=== PATIENT | female | born 1955 | race Hispanic/Latino ===

== ENCOUNTER 2016-07-08 21:23 | Inpatient (IN) | payer OTHER ==
[~2016-07-08] VITALS: Ht 152.4 cm; Wt 86.0 kg
[2016-07-08 22:19] LABS: ABSOLUTE BASOPHIL COUNT 0 /CUMM (0.0-0.2); ABSOLUTE EOSINOPHIL COUNT 0.1 /CUMM (0.0-0.7); ABSOLUTE GRANULOCYTE CT 6.7 /CUMM (1.4-6.5); ABSOLUTE LYMPH COUNT 3.5 /CUMM (1.2-3.4); ABSOLUTE MONOCYTE COUNT 0.9 /CUMM (0.10-0.60); BASOPHIL % 0 % (0.0-2.0); EOSINOPHIL % 1.2 % (0-5); GRANULOCYTE % 59.6 % (42.2-75.2); MEAN CORPUSCULAR HGB 28.2 PG (27.0-31.0); MEAN CORPUSCULAR HGB CONC 33.2 G/DL (33.0-37.0); MEAN PLATELET VOLUME 9.4 FL (7.4-10.4); PLATELET COUNT 244 /CUMM (130-400); RBC DISTRIBUTION WIDTH 14.3 % (11.5-14.5); RED BLOOD CELL CT 4.94 /CUMM (4.20-5.40); WHITE BLOOD CELL COUNT 11.3 /CUMM (4.8-10.8)
[2016-07-08 22:23] LABS: PT 11.6 SEC (9.4-12.5)
--- NOTE | 2016-07-08 23:04 | RADIOLOGY REPORT ---
EXAMINATION: XR PORTABLE CHEST CLINICAL INFORMATION: Cough and shortness of breath COMPARISON: 10/27/2008 TECHNIQUE: Portable AP view of the chest was obtained. FINDINGS: The lungs are well expanded. There is a patchy opacity at the left upper lung. No edema or effusion. No pneumothorax. The cardiomediastinal silhouette is within normal limits. No acute osseous abnormality. IMPRESSION: Patchy left upper lung opacity could represent atelectasis or pneumonia. Follow-up to resolution to exclude underlying process.
--- NOTE | 2016-07-08 23:58 | CT SCAN REPORT ---
EXAMINATION: CTA OF THE HEAD/NECK CLINICAL INFORMATION: Headache and eye redness. Neck pain with right arm pain and weakness. COMPARISON: None. TECHNIQUE: A routine non contrast head CT was performed followed by a 102 mL bolus of Optiray 350. Subsequent multidetector helical imaging was performed of the head and neck. Delayed post contrast imaging was also performed through the head. Multiplanar reformats and MIP were also obtained. Internal carotid artery stenoses are assessed in accordance with NASCET criteria unless otherwise indicated. 3D reformats will be created and reviewed when available. DLP: 2359 mGy-cm. FINDINGS: CT HEAD: No evidence of acute intracranial hemorrhage or territorial infarction. No abnormal mass effect or midline shift. [place] to white matter differentiation is preserved. No extra-axial fluid collections are identified. No hydrocephalus. No suspicious leptomeningeal or parenchymal enhancement on the post-contrast images. The osseous structures and soft tissues are normal. The mastoid air cells and visualized portions of the paranasal sinuses are well aerated. CTA NECK: The aortic arch is of normal caliber and the origins of the great vessels are patent without evidence of significant stenosis. The cervical portion of the vertebral arteries are patent bilaterally. No evidence of dissection. No luminal irregularities in the common carotid arteries and the carotid bifurcations are patent bilaterally. The cervical portion of the internal carotid arteries are of normal caliber. The laryngeal structures and pharyngeal mucosal spaces are unremarkable. The oral cavity appears normal. The parotid and submandibular glands are normal. No pathologically enlarged lymph nodes. The thyroid gland is unremarkable. Patchy consolidation in the left upper lobe suggestive of pneumonia, as seen on the chest radiograph. Spinal alignment is maintained. Mild cervical spondylosis is noted. CTA HEAD: The intradural portion of the vertebral arteries are of normal caliber. The basilar, superior cerebellar, and posterior communicating arteries are patent. The posterior, middle, and anterior cerebral arteries are of normal caliber without evidence of significant luminal irregularity. origin of the right posterior cerebral artery, supplied via the posterior communicating artery. No definite intracranial aneurysms. Of note, the external carotid arteries are also symmetric. The temporal arteries are symmetric. No focal inflammatory changes are seen. IMPRESSION: 1. No acute intracranial findings. 2. Unremarkable CT angiogram of the head and neck. 3. Patchy left upper lobe opacity most suggestive of pneumonia.
--- NOTE | 2016-07-09 01:38 | ED GENERAL ADULT ---
History of Present Illness General Chief Complaint: General Adult Stated Complaint: RIGHT/LEFT HAND NUMBNESS/RED EYE/MCCOY/SOB Source: patient, family, old records Exam Limitations: no limitations Vital Signs & Intake/Output Vital Signs & Intake/Output Vital Signs Date Time Temp Pulse Resp B/P Pulse O2 O2 Flow FiO2 Ox Delivery Rate 07/09 0219 100.6 105 20 122/67 97 Room Air 07/09 0000 100.4 104 22 116/58 97 Room Air 07/08 2130 97.8 111 22 131/91 97 Room Air ED Intake and Output 07/09 0000 07/08 1200 Intake Total Output Total Balance Patient 180 lb Weight Allergies Coded Allergies: aspirin (SENSITIVE 07/08/16) Reconcile Medications No Known Home Medications Triage Note: PER PT SOB SINCE LAST NIGHT THIS AM L SIDE NUMBNESS AND TINGLING THEN THIS AFTERNOON RT ARM STARTED NO CP NO NAUSEA. ALSO RT EYE SCLERA BLOOD SHOT X 3 DAYS STARTED WITH MCCOY Triage Nurses Notes Reviewed? yes Onset: 3 days Duration: day(s):, changing over time, continues in ED, getting worse Timing: recent history Injury Environment: home Severity: severe Modifying Factors: Worsens With: movement. LMP (ages 10-50): post menopausal : No Patient currently breastfeeds: No HPI: 3 days prior to admission patient complains of right eye redness without visual changes. 1 day prior to admission she complains of headache shortness of breath and progressive right arm pain worse at the hand radiating to her neck severe constant associated with difficulty using her hand. She feels that the pain is now radiating to her left arm with similar characteristics. She denies fever chills nausea vomiting diarrhea abdominal pain cough dysuria rash bleeding. Past History Travel History Traveled to [place] past 21 day No Medical History Any Pertinent Medical History? see below for history Neurological: NONE EENT: NONE Cardiovascular: BORDERLINE CHOL Respiratory: NONE Gastrointestinal: NONE Hepatic: NONE Renal: NONE Musculoskeletal: NONE Psychiatric: NONE Endocrine: BORDERLINE DM Surgical History Surgical History: non-contributory Psychosocial History What is your primary language Polish Tobacco Use: Never used Family History Hx Contributory? No Review of Systems Review of Systems Constitutional: Reports: see HPI, malaise, weakness. EENTM: Reports: see HPI. Respiratory: Reports: see HPI, short of breath. Cardiovascular: Reports: no symptoms. GI: Reports: no symptoms. Genitourinary: Reports: no symptoms. Musculoskeletal: Reports: no symptoms. Skin: Reports: no symptoms. Neurological/Psychological: Reports: see HPI, unable to move upper ext, weakness. Hematologic/Endocrine: Reports: no symptoms. Immunologic/Allergic: Reports: no symptoms. All Other Systems: Reviewed and Negative Physical Exam Physical Exam General Appearance: well developed/nourished, alert, awake, anxious, severe distress, obese Head: atraumatic, normal appearance Eyes: Left: normal appearance. Right: other. Ears, Nose, Throat: normal pharynx, normal ENT inspection Neck: normal inspection, supple, full range of motion, no midline tenderness Respiratory: normal breath sounds, chest non-tender, no respiratory distress, quiet respiration, decreased breath sounds Cardiovascular: regular rate/rhythm, normal peripheral pulses, norml femoral pulses equa Peripheral Pulses: 4+ carotid (R), 4+ carotid (L), 2+ radial (R), 2+ radial (L) Gastrointestinal: normal bowel sounds, soft, non-tender, no organomegaly Back: normal inspection, normal range of motion, no vertebral tenderness Extremities: normal capillary refill, limited range of motion, tenderness (soft tissue), no ligament instability, increased vascularity bilateral upper extremities right greater than left Neurologic/Psych: awake, alert, oriented x 3, 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 Skin: intact, normal color, warm/dry Lymphatic: no anterior cervical carmelita Core Measures ACS in differential dx? No CVA/TIA Diagnosis: No Severe Sepsis Present: No Septic Shock Present: No Progress Differential Diagnoses I considered the following diagnoses in my evaluation of the patient: temporal arteritis pneumonia neuropathy vasculitis radiculopathy Plan of Care: Orders Procedure Date/time Status Regular Diet 07/09 B Active TROPONIN LEVEL 07/09 1000 Active LACTIC ACID 07/09 1000 Active EKG 07/09 1000 Active CBC WITHOUT DIFFERENTIAL 07/09 0600 Complete LIPID PANEL 07/09 414 Active GLYCOSYLATED HGB 07/09 414 Active BASIC ELECTROLYTES PLUS BUN&CR 07/09 414 Active Vital Signs 07/09 413 Active Teach/Educate 07/09 413 Active Pain Treatment and Response 07/09 413 Active Nutritional Intake, Monitor 07/09 413 Active Isolation 07/09 413 Active Intake & Output 03/17 0414 Active Patient Care Conference 03/17 0414 Active Activity/Ambulation 07/09 0414 Active TROPONIN LEVEL 07/09 0400 Active EKG 07/09 0400 Active LOWER RESPIRATORY CULTURE 07/09 0322 Active Pathway - chart 07/09 0254 Active Pathway - chart 07/09 0251 Active House Staff 07/09 0251 Active Patient Data 07/09 0251 Active Code Status 07/09 0251 Active Transfer patient to 07/09 0213 Active Patient Data 07/09 0121 Active OXYGEN SETUP (GEN) 07/09 0009 Active Saline Lock 07/09 0009 Active Admit to inpatient 07/09 0009 Active Vital Signs 07/09 0009 Active Activity/Ambulation 07/09 0009 Complete Code Status 07/09 0009 Complete BLOOD CULTURE 07/09 0004 Active XRY-SHOULDER COMPLETE-RIGHT 07/09 UNK Active XRY-SHOULDER COMPLETE-LEFT 07/09 UNK Active Lab Add-on Test 07/09 UNK Active VTE Mechanical Prophylaxis 07/09 UNK Active MRI-CERVICAL SPINE 07/09 UNK Active ECHOCARDIOGRAM 07/09 UNK Active STREP PNEUMO URINARY ANTIGEN 07/08 2354 Complete LEGIONELLA URINARY ANTIGEN 07/08 2354 Complete URINALYSIS 07/08 2351 Complete Intake & Output 07/08 2239 Complete Add-on Test (ER Only) 07/08 2231 Active WESTERGREN SED RATE 07/08 2210 Complete C-REACTIVE PROTEIN 07/08 2210 Complete CREATINE PHOSPHOKINASE 07/08 2210 Complete TROPONIN LEVEL 07/08 2132 Complete PROTHROMBIN TIME 07/08 2132 Complete COMPREHENSIVE METABOLIC PANEL 07/08 2132 Complete CBC WITHOUT DIFFERENTIAL 07/08 213 Complete EKG 07/08 2132 Active Current Medications Sig/Lakhwinder Start time Last Medication Dose Stop Time Status Admin Azithromycin 500 MG DAILY 07/10 1000 AC (Zithromax) Dextrose/Water 250 ML (D5W) Ceftriaxone Sodium 1,000 MG DAILY 07/10 1000 AC (Rocephin) Atorvastatin Calcium 40 MG 1700 07/09 1700 AC (Lipitor) Enoxaparin Sodium 40 MG DAILY 07/09 1000 AC (Lovenox) Aspirin 325 MG ONCE ONE 07/09 0400 UNVr (Aspirin) 07/09 0401 Hydromorphone HCl 0.5 MG Q6PRN PRN 07/09 0330 AC (Dilaudid) Acetaminophen 650 MG Q6P PRN 07/09 0300 AC (Tylenol) Oxycodone/ 1 TAB Q6P PRN 07/09 0300 AC Acetaminophen (Percocet) Laboratory Tests 07/09/16 0415: Anion Gap 11, Estimated GFR > 60, BUN/Creatinine Ratio 17.1, Hemoglobin A1c Pending, Troponin I Pending, Triglycerides 86, Cholesterol 196, LDL Cholesterol, Calc 127, HDL Cholesterol 52, Cholesterol/HDL Ratio 4, CBC w Diff NO MAN DIFF REQ, RBC 4.24, MCV 84.7, MCH 28.4, RDW 14.1, MPV 9.6, Gran % 63.1, Lymphocytes % 29.8, Monocytes % 5.8, Eosinophils % 1.0, Basophils % 0.3, Absolute Granulocytes 7.1 H, Absolute Lymphocytes 3.4, Absolute Monocytes 0.7 H, Absolute Eosinophils 0.1, Absolute Basophils 0, PUBS MCHC 33.5 07/08/16 2354: Urinalysis MOD H, Urine Color YEL, Urine Clarity CLEAR, Urine pH 7.0, Ur Specific Dulzura 1.010, Urine Protein NEG, Urine Ketones NEG, Urine Nitrite NEG, Urine Bilirubin NEG, Urine Urobilinogen 0.2, Ur Leukocyte Esterase NEG, Ur Microscopic SEDIMENT EXAMINED, Urine RBC 1-3, Urine WBC RARE, Ur Epithelial Cells MOD H, Urine Bacteria FEW H, Urine Hemoglobin TRACE-INTACT, Urine Glucose NEG 07/08/16 2210: Anion Gap 16, Estimated GFR > 60, BUN/Creatinine Ratio 17.5, Glucose 102 H, Calcium 10.2, Total Bilirubin 0.5, AST 25, ALT 36, Alkaline Phosphatase 107, Creatine Kinase 122, Troponin I < 0.01, C-Reactive Prot, Quant 2.7 H, Total Protein 8.4 H, Albumin 4.6, Globulin 3.8, Albumin/Globulin Ratio 1.2, PT 11.6, INR 1.11, CBC w Diff NO MAN DIFF REQ, RBC 4.94, MCV 85.0, MCH 28.2, RDW 14.3, MPV 9.4, Gran % 59.6, Lymphocytes % 30.8, Monocytes % 8.4, Eosinophils % 1.2, Basophils % 0 L, Absolute Granulocytes 6.7 H, Absolute Lymphocytes 3.5 H, Absolute Monocytes 0.9 H, Absolute Eosinophils 0.1, Absolute Basophils 0, PUBS MCHC 33.2, ESR Westergren 38 H Microbiology 07/09 0322 LOWER RESP: Respiratory Culture - ORD 07/09 321 LOWER RESP: Gram Stain - ORD 07/09 24 BLOOD: Blood Culture - RECD 07/09 22 BLOOD: Blood Culture - RECD 07/08 2353 URINE ROUT: Legionella Antigen - COMP 07/08 2353 URINE ROUT: Streptococcus pneumoniae Antigen (M - COMP Diagnostic Imaging: Viewed by Me: Radiology Read, CT Scan. Discussed w/RAD: Radiology Read, CT Scan. Radiology Impression: no acute abnormality CXR Impression: AARON infiltrate Initial ED EKG: normal axis, normal intervals, normal p-waves, normal QRS complex, normal sinus rhythm, nonspecific ST T wave chg (flipped t waves V2-5) Rhythm Strip: normal sinus rhythm Departure Departure Disposition: STILL A PATIENT Condition: Stable Clinical Impression Primary Impression: Pneumonia Qualifiers: Pneumonia type: due to unspecified organism Laterality: left Lung location: upper lobe of lung Qualified Code: J18.1 - Lobar pneumonia, unspecified organism Secondary Impressions: Neuropathy, Vasculitis Referrals: CLAUDIA SMITH MD (PCP/Family) Departure Forms: Customer Survey General Discharge Information Prescriptions: Current Visit Scripts No Known Home Medications Admission Note Spoke With: KIM MORGAN MD Documentation of Exam: Documentation of any treatments & extenuating circumstances including Concerns Regarding Discharge (functional status, medication knowledge or non-compliance, living conditions, etc.) that warrant an admission rather than observation: IV antibiotics supplemental oxygen medication adjustment follow cultures IV analgesia neurology and rheumatology evaluation continuing care discharge planning Critical Care Note Critical Care Note Critical Care Time: non-applicable
--- NOTE | 2016-07-09 04:04 | History & Physical ---
REINIER ZAMORANO,[facility] 07/09/16 0403: General Information and HPI Statement: I have seen and personally examined KIMBERLYN RODRIGUEZ and documented this H&P. The patient is a 61 year old F who presented with a patient stated chief complaint of headache and upper extremity pain. History of Present Illness: This is a 61-year-old lady with a past medical history of hyperlipidemia, presents to [facility] with complaints of headache and bilateral upper extremity pain. Patient reports that about today early in the morning she developed a headache. Patient endorses prior episodes of the same kind of headache. Patient reports that her headache was bitemporal and then progressed to localizing on the right side. She reports that her pain radiated down her neck and bilateral to her upper extremities. Rates her pain as a 10 out of 10, and well at the ED stated that he was refractory to morphine. She denies any recent head or neck trauma, infection, fever, or chills. Patient does report a remote history about 2 years ago of chest pain and was evaluated by her PCP and referred to a central service supply distributor however patient did not follow-up. Patient currently denies any palpitation, dizziness, any other focal neurological deficits other than her presenting chief complaint, sick contacts, recent infection, abdominal pain or dysuria. Allergies/Medications Allergies: Coded Allergies: aspirin (SENSITIVE 07/08/16) Home Med list No Known Home Medications Past History Travel History Traveled to [place] past 21 day No Medical History Neurological: NONE EENT: NONE Cardiovascular: BORDERLINE CHOL Respiratory: NONE Gastrointestinal: NONE Hepatic: NONE Renal: NONE Musculoskeletal: NONE Psychiatric: NONE Endocrine: BORDERLINE DM Surgical History Surgical History: non-contributory Review of Systems Review of Systems Constitutional: Reports: see HPI. Exam & Diagnostic Data Last 24 Hrs of Vital Signs/I&O Vital Signs Date Time Temp Pulse Resp B/P Pulse O2 O2 Flow FiO2 Ox Delivery Rate 07/09 0739 97.8 77 16 110/58 94 Room Air 07/09 0219 100.6 105 20 122/67 97 Room Air 07/09 0000 100.4 104 22 116/58 97 Room Air 07/08 2130 97.8 111 22 131/91 97 Room Air Intake & Output 07/09 0800 07/09 0000 07/08 1600 Intake Total 100 Output Total Balance 100 Intake, Oral 100 Patient 860.918 kg 81.647 kg Weight Physical Exam General Appearance Alert, Oriented X3, Moderate Distress Skin No Significant Lesion HEENT Atraumatic, subconjuctival hemorrhage of the right eye Neck Supple, No JVD, No thryomegaly, +2 Carotid Pulse wo Bruit Lymphatic Cervical nl Cardiovascular Regular Rate, Normal S1, Normal S2, No Murmurs, Gallops Lungs Clear to Auscultation, Normal Air Movement Abdomen Normal Bowel Sounds, Soft, No Tenderness, No Hepatospenomegaly Neurological Normal Gait, Normal Speech, Sensation Intact, decreased ROM nad strength of UE b/l due to perceived pain Extremities No Edema, Normal Pulses Vascular Pulses Symmetrical Assessment/Plan Assessment: This is a 61-year-old lady past medical history of dyslipidemia, back pain and right ankle fusion is presenting with symptoms of headache and lateral radiating pain to the upper extremities. At the ED patient's vitals were noted to be stable/ physical examination was however remarkable for weakness of the upper extremity with decreased range of motion due to patient's pain. Patient also elicited reproducible chest pain on palpation Otherwise the rest of neurological exam was unremarkable. Labs obtain at the ED showed some mild leukocytosis with no bandemia while chest x-ray was suggestive of lung opacity at the left upper lobe which could be atelectasis or pneumonia. Assessment and plan #Head and neck pain with radiation to upper extremity Patient presentation of what seems to be neuropathic radiating pain originating from the neck area could be suggestive of cervical radiculopathy, however CT was unremarkable for any radiculopathy finding. The involvement of bilateral proximal muscles of the shoulders in a 61-year-old lady in the setting of elevated ESR could be suggestive of polymyalgia rheumatica. Plan Pain control with Dilaudid Will obtain MRI of cervical spine Will obtain shoulder x-ray #CT and chest x-ray finding of upper lobe infiltrate Patient does have mild leukocytosis and was febrile and tachypneic with no symptoms of cough. For now, we'll treat this is committed quite pneumonia with ceftriaxone and azithromycin. # As Ranked By This Provider Problem List: 1. Pneumonia Qualifiers Pneumonia type: due to unspecified organism Laterality: left Lung location: upper lobe of lung Qualified Code: J18.1 - Lobar pneumonia, unspecified organism 2. Upper extremity pain Core Measures/Miscellaneous Acute Coronary Syndrome ACS Diagnosis: No Cerebrovascular Accident CVA/TIA Diagnosis: No Congestive Heart Failure CHF Diagnosis: No Venous Thromboembolism VTE Risk Factors: Age > 40 [facility] prophylaxis d/t: No contraindications No VTE Pharm Prophylaxis d/t: No contraindications VTE Diagnosis: No VTE Type: NONE VTE Confirmed by (Test): NONE Severe Sepsis Severe Sepsis Present: No Septic Shock Septic Shock Present: No Miscellaneous Documentation Attending Case Discussed With: KIM MORGAN MD Primary Care Physician: CLAUDIA SMITH MD Patient sees these Specialists . Level of Patient Care: Telemetry HOLLEY PATEL MD 07/09/16 0414: Resident Review Statement Resident Statement: examined this patient, discussed with internet retailer, agreed with internet retailer Other Findings: This is a 61 y/o F with a PMH of dyslipidemia, right ankle injury s/p fusion on 2015, who presents to the ED with complaints of headache and pain radiating down both arms since this AM. According to the patient, she started to have a headache this morning, similar to the ones she has been having over the last 3 months. Associated with blurring of vision, no loss of vision, no associated nausea or vomiting. It was initially present all over the head and then localized to the right side. She reports that this headache is similar to the one she has been having. She also started to have pain in the right arm, majorly in the hand, radiating to the neck. This was associated with some shortness of breath. She also started to have pain in her left arm, which is new. Patient reports another similar episode of pain in the right arm, one year ago, which resolved by itself. Currently pain is 10/10, which has increased from 7/10 on arrival. She also reports having severe chest pain for several days, 2 years ago. She never saw a physician for it. When she later went to see her PCP, she was asked to go see a central service supply distributor, which she never did. Vitals: Stable. EKG: Shows TWI in V2, V3, V4, V5 and TWF in V6 Labs: Trops <0.01, WBC 11.3 with no bands. Imaging: CXR shows the presence of Left upper lung opacity (atelectasis vs PNA). CTA neck and head did not show the presence of any acute pathology. Physical Exam: Restricted ROM of both upper extremities 2/2 pain. Spurling's sign negative. Sensation preserved. Motor and sensation preserved in bilateral lower extremities. Problem List: 1) Bilateral Upper Extremity Pain: Considering the nature of the pain and the sudden onset, this could be radicular pain. But ESR and CRP are elevated, pointing to an inflammatory condition, which could very well be causing the pain. Also, considering her history of unevaluated chest pain, this could be cardiac in nature (she does have risk factors for cardiac disease, including strong family history, dyslipidemia). EKG also shows the presence of TWI in V2, V3, V4, V5, TWF in V6 with RBBB. Plan: Trend trops and EKG. Start Heparin if the trops are elevated Xray shoulder bilateral MRI of the neck CPK to look for inflammatory myopathies Nitro patch( if pain is relieved, this points to cardiac origin) Aspirin Statin ECHO Cardio consult 2) Community Acquired PNA: Ceftriaxone and Azithromycin. Blood culture, sputum cultures. Urine Legionella and Strep Pneumo 3) Pain Pathway: Tylenol, Percocet and Dilaudid 4) DVT PPx: SubQ Lovenox 5) Code Status: Full Code KIM MORGAN 07/09/16 0536: Attending MD Review Statement Attending Statement Attending MD Statement: examined this patient, discuss w/resident/PA/CHIEF INFORMATION SECURITY OFFICER, agreed w/resident/PA/CHIEF INFORMATION SECURITY OFFICER, reviewed EMR data (avail), reviewed images, amended to note Attending Assessment/Plan: C: Bilateral arm pain L>R PMh: HLD, Fx significant for CAD, brother of [place] at age 45 Patient had severe right arm pain started this morning. Started with the hand progressed towards neck, then she noticed left arm pain as well, currently left shoulder hurts maximum. It was also associated with headache, started all over but then lateralized to right site. Patient had red eye right side since 3 days with no vision changes. Patient denies any chest pain, palpitations, diaphoresis , LOC, cough, expectoration, fever, chills, abdominal pain, constipation, diarrhea, vomiting. She endorses some shortness of breath. 2 years back she had chest pains every night lasted for few months, resolved eventually by itself but she did not get any cardiac workup done. Vitals: Temperature at presentation 97.8 but increased up to 100.6 in ER, tachycardia, RR 22,, blood pressure in normal range saturating 97% on room air. On examination : A O 3, neck supple, no JVD, no lymphadenopathy, mucosa dry, face flushed, no dependent edema. CVS: S1-S2, RRR. RS: Clear to auscultate bilaterally. Abdomen: Soft, NT, bowel sounds present. No focal neurological deficits but upper extremity strength difficult to assess because of limited ROM. Reproducible pain in left shoulder. Assessment of Movement at shoulder is restricted secondary to pain. No obvious inflammation, redness around that region. Sensation intact throughout. Lower extremity strength normal. Labs: WBC 11.3, glucose 102, calcium 10.2, CRP 2.7, ESR 38 CTA head and neck: 1. No acute intracranial findings. 2. Unremarkable CT angiogram of the head and neck. 3. Patchy left upper lobe opacity most suggestive of pneumonia. CXR: Patchy left upper lung opacity could represent atelectasis or pneumonia. EKG : T-wave inversion in lateral leads, no comparison available. A and p #1 bilateral upper extremity pain, left more than right, mostly left shoulder: Unclear etiology, ROM of shoulders is restricted. Broad differential, ? Neuropathy, radiculopathy, myopathy, joint involvement. -Cardiac pathology should be ruled out, left shoulder pain, family history, dyslipidemia, previous chest pains. Currently T-wave inversions in lateral leads , no obvious ST changes, first set of troponin negative. Continue to trend troponin, serial EKG, patient's pain is not relieved with morphine and Dilaudid try nitroglycerin patch if pain is better then patient may require heparin for unstable angina. Continue aspirin, check lipid profile, atorvastatin, 2-D echo in morning, cardiology consult. - MRI of neck to rule out any cervical spine pathology - X-ray both shoulders - CPK #2 CT of neck and CXR shows left upper lobe infiltrate: Patient does not have any obvious cough, mild leukocytosis, fever, elevated CRP. This point continue to treat as community-acquired pneumonia with ceftriaxone and azithromycin, reevaluate for need of antibiotics according to symptoms. Check lactate, continue IV fluids #3 red eye right side: ?conjunctivitis, pupils normal to react, vision intact.
[2016-07-09 04:40] LABS: ABSOLUTE BASOPHIL COUNT 0 /CUMM (0.0-0.2); ABSOLUTE EOSINOPHIL COUNT 0.1 /CUMM (0.0-0.7); ABSOLUTE GRANULOCYTE CT 7.1 /CUMM (1.4-6.5); ABSOLUTE LYMPH COUNT 3.4 /CUMM (1.2-3.4); ABSOLUTE MONOCYTE COUNT 0.7 /CUMM (0.10-0.60); BASOPHIL % 0.3 % (0.0-2.0); GRANULOCYTE % 63.1 % (42.2-75.2); MEAN CORPUSCULAR HGB 28.4 PG (27.0-31.0); MEAN CORPUSCULAR HGB CONC 33.5 G/DL (33.0-37.0); MEAN CORPUSCULAR VOLUME 84.7 FL (81.0-99.0); MEAN PLATELET VOLUME 9.6 FL (7.4-10.4); PLATELET COUNT 214 /CUMM (130-400); RBC DISTRIBUTION WIDTH 14.1 % (11.5-14.5); RED BLOOD CELL CT 4.24 /CUMM (4.20-5.40); WHITE BLOOD CELL COUNT 11.3 /CUMM (4.8-10.8)
[2016-07-09 04:49] LABS: HEMATOCRIT 35.9 % (37-47)
--- NOTE | 2016-07-09 05:38 | Admission Certification ---
Admission Certification Certification Statement - As attending physician, I certify that at the time of - admission, based on clinical presentation, severity of - symptoms, need for further diagnostic testing and - therapeutic interventions, and risk of adverse outcomes - without in-hospital treatment, in my clinical assessment, - this patient requires an acute hospital stay for a minimum - of two nights or longer. I have also considered psychsocial - factors such as support system, advanced age, financial - issues, cognitive issues, and failed out-patient treatments, - past re-admission history, safety of patient, and lack of - compliance as applicable. Specific rationale supporting this admission is: pneumonia, bilateral upper extremity intractable pain
[2016-07-09 07:39] VITALS: BP 110/58
--- NOTE | 2016-07-09 09:27 | RADIOLOGY REPORT ---
EXAMINATION: RIGHT AND LEFT SHOULDER RADIOGRAPHS. CLINICAL INFORMATION: Pain and numbness. Tingling in the extremities. COMPARISON: Chest radiograph 07/08/2016. CT angiogram of the neck 07/08/2016. TECHNIQUE: 4 views of the right shoulder were obtained and 4 views of the left shoulder were obtained. 9 images total. FINDINGS: Right shoulder: There is no acute fracture or dislocation. Mild degenerative change. The acromiohumeral interval is maintained. The acromioclavicular joint is intact. Grossly no clear evidence of a large joint effusion. Soft tissues are grossly unremarkable. Visualized portions of the right upper hemithorax reveal no abnormal finding. Left shoulder: There is no acute fracture or dislocation. Mild degenerative change. The acromiohumeral interval is maintained. The acromioclavicular joint is intact. Grossly there is no clear evidence of a large joint effusion. Soft tissues are unremarkable. Visualized portions of the left upper hemithorax reveal ill-defined opacities within the left upper lobe. These findings were illustrated on the recent CT angiogram of the neck from 07/08/2016. IMPRESSION: With the exception of mild degenerative changes of both shoulders there is no acute finding. Specifically no acute fracture or dislocation. Consolidative disease within the left upper hemithorax is redemonstrated. Differential considerations include malignancy versus pneumonia. A follow-up radiograph is recommended after a complete course of empiric treatment to confirm the resolution of this finding.
--- NOTE | 2016-07-09 11:10 | PN- Att Addend ---
Attending Addendum Attending Brief Note Patient seen and examined. This is a 61-year-old female with a strong family history of coronary artery disease who is here with nonspecific symptoms off shortness of breath and bilateral arm pain with burning. She didn't complain of cough or fevers at home but was noticed to be febrile to [address] chest, chest x-ray and shoulder x-ray all showing dense consolidation in the left upper lobe. We have her on ceftriaxone and Azithro for community-acquired pneumonia. A flu swab is pending. She has some nonspecific EKG changes with this vague chest discomfort and arm pain. Her troponin so far have been negative. We have her on aspirin and nitroglycerin when necessary per cardiology. Dr. Brown is seeing her for risk stratification for urgent cath versus nuclear stress test.
--- NOTE | 2016-07-09 11:51 | MRI REPORT ---
EXAMINATION: MR CERVICAL SPINE WITHOUT CONTRAST CLINICAL INFORMATION: Upper extremity and neck pain. COMPARISON: CTA of the head and neck from 07/08/2016. TECHNIQUE: MRI of the cervical spine without contrast was obtained using routine sequences. FINDINGS: VERTEBRAL BODIES AND PARASPINAL SOFT TISSUES: Vertebral body height, signal, and sagittal alignment are maintained. No marrow edema. There is multilevel disc desiccation. There is mild intervertebral disc height loss at C5-C6. No intramedullary signal abnormality is visualized. Cervical flow-voids are maintained. Bilateral symmetric cervical lymph nodes without lymphadenopathy. Level 2 lymph nodes measure up to 1.5 cm in long axis, top normal. The imaged pharyngeal and laryngeal contours appear grossly unremarkable apart from a retention cyst in the left parasagittal nasopharynx. No focal thyroid lesions. CERVICOMEDULLARY JUNCTION AND VISUALIZED POSTERIOR FOSSA: The visualized intracranial structures appear unremarkable. The cerebellar tonsils are normally positioned. SPINAL LEVELS: C2-C3, C3-C4: Normal disc morphology. No canal or foraminal stenosis. C4-C5: There is a shallow central protrusion and minor uncovertebral hypertrophy without significant canal or foraminal stenosis. C5-C6: There is disc osteophyte complex mildly flattening the ventral thecal sac and mild to moderately narrowing both foramina. C6-C7: There is disc osteophyte complex mildly flattening the ventral thecal sac. There is moderate left foraminal stenosis and mild right foraminal stenosis. C7-T1: Normal disc morphology without canal or foraminal stenosis. IMPRESSION: C6-C7: Disc osteophyte complex with mild canal and right foraminal stenosis, and moderate left foraminal stenosis. C5-C6: Disc osteophyte complex with mild canal and [id number] bilateral foraminal stenosis. No high-grade canal stenosis. No intramedullary signal abnormality or marrow edema.
[2016-07-09 16:11] VITALS: BP 102/58
--- NOTE | 2016-07-09 17:13 | Cons- Cardiology ---
General Information and HPI Consulting Request Date of Consult: 07/09/16 Requested By: GEO GONSALVES MD Reason for Consult: Chest discomfort; abnormal ECG; pneumonia Source of Information: patient, family, old records Exam Limitations: no limitations History of Present Illness: The patient is a 61 year old female with a history of HLD who is admitted for further evaluation and treatment of shoulder discomfort, chest discomfort and probable pneumonia. I was asked to see the patient for further assistance with evaluation of her symptoms and an abnormal ECG. She denies any known history of CAD. When I saw her today, she was having active 5/10 mid sternal chest discomfort. NO other associated symptoms were present. Subtle new anterolateral STT changes were noted on the ECG at that time. TNG SL x 2 relieved the symptoms at that time. Allergies/Medications Allergies: Coded Allergies: aspirin (SENSITIVE 07/08/16) Home Med List: No Known Home Medications Current Medications: Current Medications Sig/Alkhwinder Start time Last Medication Dose Route Stop Time Status Admin Acetaminophen 650 MG Q6P PRN 07/09 0300 AC PO Aspirin 81 MG DAILY 07/10 1000 AC PO Aspirin 325 MG .STK-MED ONE 07/09 1103 DC PO 07/09 1104 Aspirin 325 MG ONCE ONE 07/09 0400 DC 07/09 PO 07/09 0401 0529 Atorvastatin Calcium 40 MG 1700 07/09 1700 AC 07/09 PO 1627 Azithromycin 500 MG DAILY 07/10 1000 DC Dextrose/Water 250 ML IV Azithromycin 500 MG 0000 07/10 0000 AC Dextrose/Water 250 ML IV Azithromycin 500 MG ONCE ONE 07/09 0015 DC 07/09 Dextrose/Water 250 ML IV 07/09 0114 0134 Ceftriaxone Sodium 1,000 MG DAILY 07/10 1000 DC IV Ceftriaxone Sodium 1,000 MG 0000 07/10 0000 AC IV Ceftriaxone Sodium 0 .STK-MED ONE 07/09 0047 DC .ROUTE Ceftriaxone Sodium 1,000 MG ONCE ONE 07/09 0015 DC 07/09 IV 07/09 0016 0053 Enoxaparin Sodium 40 MG DAILY 07/09 1000 AC 07/09 SC 1221 Hydromorphone HCl 0.5 MG Q6PRN PRN 07/09 0330 AC 07/09 IV 0804 Hydromorphone HCl 0 .STK-MED ONE 07/09 0307 DC .ROUTE Hydromorphone HCl 0.5 MG Q4P PRN 07/09 0300 DC 07/09 IV 0312 Ibuprofen 600 MG ONCE ONE 07/09 0400 DC 07/09 PO 07/09 0401 0529 Morphine Sulfate 0 .STK-MED ONE 07/09 0047 DC .ROUTE Morphine Sulfate 4 MG ONCE ONE 07/09 0015 DC 07/09 IV 07/09 0016 0053 Nitroglycerin 0.4 MG Q 5 MINUTES X 3 DO.. 07/09 1115 AC 07/09 SL 1105 Nitroglycerin 0.2 MG DAILY PRN 07/09 1100 AC TOP Nitroglycerin 0.2 MG ONCE ONE 07/09 0400 DC 07/09 TOP 07/09 0401 0520 Oxycodone/ 1 TAB Q6P PRN 07/09 0300 AC Acetaminophen PO Sodium Chloride 1,000 ML BOLUS ONE 07/09 0015 DC 07/09 IV 07/09 0114 0053 Past History Travel History Traveled to [place] past 21 day No Medical History Neurological: NONE EENT: NONE Cardiovascular: BORDERLINE CHOL Respiratory: NONE Gastrointestinal: NONE Hepatic: NONE Renal: NONE Musculoskeletal: NONE Psychiatric: NONE Endocrine: BORDERLINE DM Surgical History Surgical History: non-contributory Exam & Diagnostic Data Vital Signs and I&O Vital Signs Date Time Temp Pulse Resp B/P Pulse O2 O2 Flow FiO2 Ox Delivery Rate 07/09 1611 97.5 72 16 102/58 94 Room Air 07/09 0739 97.8 77 16 110/58 94 Room Air 07/09 0219 100.6 105 20 122/67 97 Room Air 07/09 0000 100.4 104 22 116/58 97 Room Air 07/08 2130 97.8 111 22 131/91 97 Room Air Intake & Output 07/09 1600 07/09 0800 07/09 0000 07/08 1600 07/08 0800 07/08 0000 Intake Total 480 100 Output Total Balance 480 100 Intake, Oral 480 100 Patient 1898 lb 180 lb Weight Physical Exam: General Appearance Alert, Oriented X3, Moderate Distress Skin No Significant Lesion HEENT Atraumatic, subconjuctival hemorrhage of the right eye Neck Supple, No JVD, No thryomegaly, +2 Carotid Pulse wo Bruit Lymphatic Cervical nl Cardiovascular Regular Rate, Normal S1, Normal S2, 1/6 systolic murmur LUSB Lungs Clear to Auscultation Abdomen Normal Bowel Sounds, Soft, No Tenderness, No Hepatospenomegaly Neurological Non focal Extremities No Edema, Normal Pulses Vascular Pulses Symmetrical Labs/Juaquin Results: Laboratory Tests 07/09 07/09 07/09 1020 0600 0415 Chemistry Sodium (137 - 145 mmol/L) Cancelled 140 Potassium (3.5 - 5.1 mmol/L) Cancelled 4.2 Chloride (98 - 107 mmol/L) Cancelled 107 Carbon Dioxide (22 - 30 mmol/L) Cancelled 22 Anion Gap (5 - 16) Cancelled 11 BUN (7 - 17 mg/dL) Cancelled 12 Creatinine (0.5 - 1.0 mg/dL) Cancelled 0.7 Estimated GFR (>60 ml/min) > 60 BUN/Creatinine Ratio (7 - 25 %) Cancelled 17.1 Hemoglobin A1c (4.2 - 5.8 %) 5.9 H Troponin I (< 0.11 ng/ml) < 0.01 < 0.01 Triglycerides (<150 mg/dL) 86 Cholesterol (<200 MG/DL) 196 LDL Cholesterol, Calc (65 - 129 mg/dL) 127 HDL Cholesterol (40 - 60 mg/dL) 52 Cholesterol/HDL Ratio (0.00 - 4.23 %) 4 Hematology CBC w Diff NO MAN DIFF REQ WBC (4.8 - 10.8 /CUMM) 11.3 H RBC (4.20 - 5.40 /CUMM) 4.24 Hgb (12.0 - 16.0 G/DL) 12.0 Hct (37 - 47 %) 35.9 L MCV (81.0 - 99.0 FL) 84.7 MCH (27.0 - 31.0 PG) 28.4 RDW (11.5 - 14.5 %) 14.1 Plt Count (130 - 400 /CUMM) 214 MPV (7.4 - 10.4 FL) 9.6 Gran % (42.2 - 75.2 %) 63.1 Lymphocytes % (20.5 - 51.1 %) 29.8 Monocytes % (1.7 - 9.3 %) 5.8 Eosinophils % (0 - 5 %) 1.0 Basophils % (0.0 - 2.0 %) 0.3 Absolute Granulocytes (1.4 - 6.5 /CUMM) 7.1 H Absolute Lymphocytes (1.2 - 3.4 /CUMM) 3.4 Absolute Monocytes (0.10 - 0.60 /CUMM) 0.7 H Absolute Eosinophils (0.0 - 0.7 /CUMM) 0.1 Absolute Basophils (0.0 - 0.2 /CUMM) 0 PUBS MCHC (33.0 - 37.0 G/DL) 33.5 0307/08 2354 2210 Chemistry Sodium (137 - 145 mmol/L) 138 Potassium (3.5 - 5.1 mmol/L) 3.9 Chloride (98 - 107 mmol/L) 101 Carbon Dioxide (22 - 30 mmol/L) 22 Anion Gap (5 - 16) 16 BUN (7 - 17 mg/dL) 14 Creatinine (0.5 - 1.0 mg/dL) 0.8 Estimated GFR (>60 ml/min) > 60 BUN/Creatinine Ratio (7 - 25 %) 17.5 Glucose (65 - 99 mg/dL) 102 H Calcium (8.4 - 10.2 mg/dL) 10.2 Total Bilirubin (0.2 - 1.3 mg/dL) 0.5 AST (14 - 36 U/L) 25 ALT (9 - 52 U/L) 36 Alkaline Phosphatase (<127 U/L) 107 Creatine Kinase (30 - 135 U/L) 122 Troponin I (< 0.11 ng/ml) < 0.01 C-Reactive Prot, Quant (<1.0 mg/dL) 2.7 H Total Protein (6.3 - 8.2 g/dL) 8.4 H Albumin (3.5 - 5.0 g/dL) 4.6 Globulin (1.9 - 4.2 gm/dL) 3.8 Albumin/Globulin Ratio (1.1 - 2.2 %) 1.2 Coagulation PT (9.4 - 12.5 SEC) 11.6 INR (0.90 - 1.19) 1.11 Hematology CBC w Diff NO MAN DIFF REQ WBC (4.8 - 10.8 /CUMM) 11.3 H RBC (4.20 - 5.40 /CUMM) 4.94 Hgb (12.0 - 16.0 G/DL) 13.9 Hct (37 - 47 %) 42.0 MCV (81.0 - 99.0 FL) 85.0 MCH (27.0 - 31.0 PG) 28.2 RDW (11.5 - 14.5 %) 14.3 Plt Count (130 - 400 /CUMM) 244 MPV (7.4 - 10.4 FL) 9.4 Gran % (42.2 - 75.2 %) 59.6 Lymphocytes % (20.5 - 51.1 %) 30.8 Monocytes % (1.7 - 9.3 %) 8.4 Eosinophils % (0 - 5 %) 1.2 Basophils % (0.0 - 2.0 %) 0 L Absolute Granulocytes (1.4 - 6.5 /CUMM) 6.7 H Absolute Lymphocytes (1.2 - 3.4 /CUMM) 3.5 H Absolute Monocytes (0.10 - 0.60 /CUMM) 0.9 H Absolute Eosinophils (0.0 - 0.7 /CUMM) 0.1 Absolute Basophils (0.0 - 0.2 /CUMM) 0 PUBS MCHC (33.0 - 37.0 G/DL) 33.2 ESR Westergren (0 - 20 MM) 38 H Urines Urinalysis MOD H Urine Color (YEL,AMB,STR) YEL Urine Clarity (CLEAR) CLEAR Urine pH (5.0 - 8.0) 7.0 Ur Specific [place] (1.001 - 1.035) 1.010 Urine Protein (NEG,<30 MG/DL) NEG Urine Ketones (NEG) NEG Urine Nitrite (NEG) NEG Urine Bilirubin (NEG) NEG Urine Urobilinogen (0.1 - 1.0 EU/dl) 0.2 Ur Leukocyte Esterase (NEG) NEG Ur Microscopic SEDIMENT EXAMINED Urine RBC (0 - 5 /HPF) 1-3 Urine WBC (0 - 2 /HPF) RARE Ur Epithelial Cells (NONE,FEW) MOD H Urine Bacteria (NEG/NONE) FEW H Urine Hemoglobin (NEG) TRACE-INTACT Urine Glucose (N MG/DL) NEG Diagnostic Data EKG Results 1. NSR; RSR'; anterolaterall STT changes 2. Subtle lateral ST elevation of <1mm. No other changes 3. No change CXR Results FINDINGS: The lungs are well expanded. There is a patchy opacity at the left upper lung. No edema or effusion. No pneumothorax. The cardiomediastinal silhouette is within normal limits. No acute osseous abnormality. IMPRESSION: Patchy left upper lung opacity could represent atelectasis or pneumonia. Follow-up to resolution to exclude underlying process. Assessment/Plan Assessment/Plan Assessment: 1. Chest pain syndrome; R/O ACS - The patient presents with somewhat atypical shoulder discomfort initially but now notes substernal pressure radiating to the left neck and shoulder. These symptoms were essentially relieved by TNG SL x 2. Her ECG is not normal but is without acute change and there is no apparent change in the ECG with symptoms re relief. Nevertheless, ischemic symptoms remain on the DDX list and further evaluation is warranted. 2. Probable AARON pneumonia 3. HLD Recommendations: - Continue care as per the medical team. - Serial troponins - ECG with any chest discomfort - Echocardiogram pending - ASA - TOpical nitrates - Please keep the patient NPO after midnight Tuesday for pharmacologic stress test or possible cardiac catheterization on Tuesday. Ultimate plans depending on the patient's clinicaly course. Consult Acknowledgment - Thank you for your consult request.
--- NOTE | 2016-07-09 19:49 | ECHOCARDIOGRAM REPORT ---
KIMBERLYN RODRIGUEZ Age: 61 : 1955 Gender: F Exam Date: 07/09/2016 11:34 Exam Location: [facility] Ht (in): 60 Wt (lb): 180 BSA: 1.90 BP: 110 / 58 Ordering Physician: HOLLEY PATEL MD Referring Physician: HOLLEY PATEL MD Technologist: Luigi Marcus [facility] Room Number: 171-1 Indications: Chest Pain Rhythm: Sinus Technical Quality: Fair FINDINGS Left Ventricle Normal global left ventricular size, wall thickness, systolic function with no obvious regional wall motion abnormalities. Normal left ventricular ejection fraction estimated at 55-60%. Right Ventricle Normal right ventricular size and function. Right Atrium Normal right atrial size. Left Atrium Normal left atrial size. Mitral Valve Mitral valve thickened. Trace mitral regurgitation. Aortic Valve Structurally normal trileaflet aortic valve. No aortic stenosis. No aortic regurgitation. Tricuspid Valve Tricuspid valve not well visualized, grossly normal. Trace to mild tricuspid regurgitation. Pulmonic Valve Pulmonic valve not well visualized, grossly normal. Pericardium Minimal pericardial effusion (normal variant). Great Vessels Normal size aortic root and proximal ascending aorta. CONCLUSIONS 1. The aortic valve is trileaflet and normal. 2. Mild mitral leaflet thickening is present with minimal mitral insufficiency. 3. A physiologic pericardial effusion is present. 4. The left ventricular chamber size and systolic function are normal with no obvious resting wall motion abnormalities. 5. Mild tricuspid insufficiency is present with no evidence of pulmonary hypertension. The right heart structures were not optimally visualized. Mishel Brown M.D. (Electronically Signed) Final Date: 09 July 2016 19:48 MEASUREMENTS (Male / Female) Normal Values 2D ECHO LV Diastolic Diameter PLAX 4.6 cm 4.2 - 5.9 / 3.9 - 5.3 cm LV Systolic Diameter PLAX 2.6 cm 2.1 - 4.0 cm LV Fractional Shortening PLAX 43.5 % 25 - 46 % LV Ejection Fraction 2D Teich 74.7 % IVS Diastolic Thickness 1.1 cm LVPW Diastolic Thickness 1.0 cm LV Relative Wall Thickness 0.5 RV Internal Dim ED PLAX 3.2 cm 1.9 - 3.8 cm LVOT Diameter 1.7 cm Aortic Root Diameter 2.6 cm LA Systolic Diameter LX 2.9 cm 3.0 - 4.0 / 2.7 - 3.8 cm Ascending Aorta Diameter 2.8 cm DOPPLER AV Peak Velocity 138.0 cm/s AV Peak Gradient 7.6 mmHg AV Mean Velocity 101.0 cm/s AV Mean Gradient 5.0 mmHg AV Velocity Time Integral 33.2 cm LVOT Peak Velocity 96.3 cm/s LVOT Peak Gradient 3.7 mmHg LVOT Mean Velocity 56.3 cm/s LVOT Mean Gradient 2.0 mmHg LVOT Velocity Time Integral 23.6 cm LVOT Stroke Volume 53.6 cm AV Area Cont Eq vti 1.6 cm AV Area Cont Eq pk 1.6 cm MV Peak Velocity 89.6 cm/s MV Peak Gradient 3.2 mmHg MV Mean Velocity 50.1 cm/s MV Mean Gradient 1.0 mmHg Mitral E Point Velocity 62.2 cm/s Mitral A Point Velocity 96.3 cm/s Mitral E to A Ratio 0.6 MV PHT Velocity 84.2 cm/s MV Deceleration Reagan 470.0 cm/s MV Pressure Half Time 53.7 ms MV Area PHT 4.1 cm MV Deceleration Time 380.0 ms TR Peak Velocity 248.0 cm/s TR Peak Gradient 24.6 mmHg Right Atrial Pressure 5.0 mmHg Pulmonary Artery Systolic Pressu 29.6 mmHg Right Ventricular Systolic Press 29.6 mmHg PV Peak Velocity 110.0 cm/s PV Peak Gradient 4.8 mmHg PV Mean Velocity 78.6 cm/s PV Mean Gradient 3.0 mmHg PV Velocity Time Integral 30.1 cm LV E' Lateral Velocity 10.8 cm/s Mitral E to LV E' Lateral Ratio 5.8 LV E' Septal Velocity 12.6 cm/s Mitral E to LV E' Septal Ratio 4.9
[2016-07-09 23:30] VITALS: BP 130/74
[2016-07-10 07:45] VITALS: BP 120/72
[2016-07-10 08:18] LABS: ABSOLUTE BASOPHIL COUNT 0 /CUMM (0.0-0.2); ABSOLUTE EOSINOPHIL COUNT 0.2 /CUMM (0.0-0.7); ABSOLUTE GRANULOCYTE CT 6.7 /CUMM (1.4-6.5); ABSOLUTE LYMPH COUNT 1.7 /CUMM (1.2-3.4); ABSOLUTE MONOCYTE COUNT 0.6 /CUMM (0.10-0.60); BASOPHIL % 0.4 % (0.0-2.0); EOSINOPHIL % 2.1 % (0-5); HEMATOCRIT 35.1 % (37-47); MEAN CORPUSCULAR HGB 28.7 PG (27.0-31.0); MEAN CORPUSCULAR HGB CONC 33.7 G/DL (33.0-37.0); MEAN CORPUSCULAR VOLUME 85.3 FL (81.0-99.0); MEAN PLATELET VOLUME 9.8 FL (7.4-10.4); PLATELET COUNT 206 /CUMM (130-400); RBC DISTRIBUTION WIDTH 14.1 % (11.5-14.5); RED BLOOD CELL CT 4.12 /CUMM (4.20-5.40); WHITE BLOOD CELL COUNT 9.3 /CUMM (4.8-10.8)
--- NOTE | 2016-07-10 08:49 | PN- Housestaff ---
JUAN CARLOS ZAMORANO,GRAYSON 07/10/16 0849: Subjective Follow-up For: Chest discomfort; abnormal ECG; pneumonia Tele-Events Since Last Visit: Sinus, HR 79-96 Subjective: Patient seen and examined at bedside. Reports chest pain and headache but under control and improving. Denies any f/c, headache, dyspnea, palpitations, n/v/c/d , dizziness/lightheadedness. No events reported overnight. Review of Systems Constitutional: Reports: see HPI. Objective Last 24 Hrs of Vital Signs/I&O Vital Signs Date Time Temp Pulse Resp B/P Pulse O2 O2 Flow FiO2 Ox Delivery Rate 07/10 0745 98.2 84 18 120/72 96 Nasal 2.0L Cannula 07/10 0000 95 Nasal 2.0L Cannula 07/09 2330 98.4 90 18 130/74 95 Nasal 2.0L Cannula 07/09 2104 Nasal 2.0L Cannula 07/09 1611 97.5 72 16 102/58 94 Room Air 07/09 1600 97 Room Air Intake & Output 07/10 1600 07/10 0800 07/10 0000 Intake Total 450 400 Output Total 400 Balance 50 400 Intake, IV 250 Intake, Oral 200 400 Number 0 Bowel Movements Output, Urine 400 Physical Exam General Appearance: Alert, Oriented X3, Cooperative Other Physical Findings: Skin No Significant Lesion HEENT Atraumatic, subconjuctival hemorrhage of the right eye Neck Supple, No JVD, No thryomegaly, +2 Carotid Pulse wo Bruit Lymphatic Cervical nl Cardiovascular Regular Rate, Normal S1, Normal S2, No Murmurs, Gallops Lungs Clear to Auscultation, Normal Air Movement Abdomen Normal Bowel Sounds, Soft, No Tenderness, No Hepatospenomegaly Neurological Normal Gait, Normal Speech, Sensation Intact, decreased ROM nad strength of UE b/l due to perceived pain Extremities No Edema, Normal Pulses Vascular Pulses Symmetrical Current Medications: Current Medications Sig/Lakhwinder Start time Last Medication Dose Route Stop Time Status Admin Acetaminophen 650 MG Q6P PRN 07/09 0300 AC 07/09 PO 1929 Aspirin 81 MG DAILY 07/10 1000 AC PO Aspirin 325 MG .STK-MED ONE 07/09 1103 DC PO 07/09 1104 Atorvastatin Calcium 40 MG 1700 07/09 1700 AC 07/09 PO 1627 Azithromycin 500 MG DAILY 07/10 1000 DC Dextrose/Water 250 ML IV Azithromycin 500 MG 0000 07/10 0000 AC 07/10 Dextrose/Water 250 ML IV 0049 Ceftriaxone Sodium 1,000 MG DAILY 07/10 1000 DC IV Ceftriaxone Sodium 1,000 MG 0000 07/10 0000 AC 07/10 IV 0049 Enoxaparin Sodium 40 MG DAILY 07/09 1000 AC 07/10 SC 0817 Guaifenesin 10 ML Q4P PRN 07/09 1800 AC 07/09 PO 1925 Hydromorphone HCl 0.5 MG Q6PRN PRN 07/09 0330 AC 07/10 IV 0818 Nitroglycerin 0.4 MG Q 5 MINUTES X 3 DO.. 07/09 1115 AC 07/09 SL 1811 Nitroglycerin 0.2 MG DAILY PRN 07/09 1100 AC TOP Oxycodone/ 1 TAB Q6P PRN 07/09 0300 AC 07/10 Acetaminophen PO 0639 Last 24 Hrs of Lab/Juaquin Results Last 24 Hrs of Labs/Mics: Laboratory Tests 07/10/16 0625: Anion Gap 10, Estimated GFR > 60, BUN/Creatinine Ratio 18.3, CBC w Diff NO MAN DIFF REQ, RBC 4.12 L, MCV 85.3, MCH 28.7, RDW 14.1, MPV 9.8, Gran % 72.0, Lymphocytes % 18.7 L, Monocytes % 6.8, Eosinophils % 2.1, Basophils % 0.4, Absolute Granulocytes 6.7 H, Absolute Lymphocytes 1.7, Absolute Monocytes 0.6, Absolute Eosinophils 0.2, Absolute Basophils 0, PUBS MCHC 33.7 07/10/16 0240: Troponin I < 0.01 07/09/16 1836: Troponin I < 0.01 07/09/16 1020: Troponin I < 0.01 Microbiology 07/09 1217 NASOPHARYN: Influenza Virus A & B Rapid Smear - COMP Assessment/Plan Assessment: This is a 61 y/o F with a PMH of dyslipidemia, right ankle injury s/p fusion on 2015, who presents to the ED with complaints of headache and pain radiating down both arms since this AM. According to the patient, she started to have a headache this morning, similar to the ones she has been having over the last 3 months. Associated with blurring of vision, no loss of vision, no associated nausea or vomiting. It was initially present all over the head and then localized to the right side. She reports that this headache is similar to the one she has been having. She also started to have pain in the right arm, majorly in the hand, radiating to the neck. This was associated with some shortness of breath. She also started to have pain in her left arm, which is new. Patient reports another similar episode of pain in the right arm, one year ago, which resolved by itself. Currently pain is 10/10, which has increased from 7/10 on arrival. She also reports having severe chest pain for several days, 2 years ago. She never saw a physician for it. When she later went to see her PCP, she was asked to go see a claim service representative, which she never did. 1) Bilateral Upper Extremity Pain: Considering the nature of the pain and the sudden onset, this could be radicular pain. But ESR and CRP are elevated, pointing to an inflammatory condition, which could very well be causing the pain. Also, considering her history of unevaluated chest pain, this could be cardiac in nature (she does have risk factors for cardiac disease, including strong family history, dyslipidemia). EKG also shows the presence of TWI in V2, V3, V4, V5, TWF in V6 with RBBB. Plan: * Trend trops and EKG - negative * Xray shoulder bilateral - no acute finding. * CPK to look for inflammatory myopathies - WNL * Nitro patch (if pain is relieved, this points to cardiac origin) * Cont aspirin, statin * Follow echo - grossly normal with EF > 55%, physiologic pericardial effusion present. * Follow cardio recs * NPO starting on the night of 07/11 for impending stress test 2) Community Acquired PNA: * Cont ceftriaxone and Azithromycin. * Follow blood culture, sputum cultures. * Urine Legionella and Strep Pneumo - negative * Flu swab - negative 3) Pain Pathway: Tylenol, Percocet and Dilaudid 4) DVT PPx: SubQ Lovenox 5) Code Status: Full Code Problem List: 1. Pneumonia 2. Vasculitis 3. Neuropathy 4. Upper extremity pain Pain Ratin Pain Location: Head and chest Pain Goal: Pain 4 or less Pain Plan: Mild pathway Nitro Tomorrow's Labs & Rationales: None GAYATHRI ORDONEZ MD 07/10/16 1206: Attending MD Review Statement Attending Statement Attending MD Statement: examined this patient, discuss w/resident/PA/CUSTOMS OFFICER, agreed w/resident/PA/CUSTOMS OFFICER, reviewed EMR data (avail), discussed with nursing, reviewed images, amended to note Attending Assessment/Plan: 61-year-old female with a family history of coronary artery disease has been admitted to the floor with shortness of breath and left shoulder pain. She is being worked out to exclude coronary artery disease and is being treated for community-acquired pneumonia. Patient was seen and examined this morning. His vitals are stable and requiring 2 L of oxygen by nasal cannula. Labs noted and her white count with no leukocytosis, normal chemistry with hopes negative. Cultures so far negative. We will continue to treat her for community-acquired pneumonia. Cardiology on board and the plan is to keep the patient nothing by mouth from Tuesday midnight for possible cath/ stress test. w/resident/ZELALEM/CUSTOMS OFFICER, reviewed EMR data (avail), discussed with nursing, reviewed images, amended to note Attending Assessment/Plan: 61-year-old female with a family history of coronary artery disease has been admitted to the floor with shortness of breath and left shoulder pain. She is being worked out to exclude coronary artery disease and is being treated for community-acquired pneumonia. Patient was seen and examined this morning. His vitals are stable and requiring 2 L of oxygen by nasal cannula. Labs noted and her white count with no leukocytosis, normal chemistry with hopes negative. Cultures so far negative. We will continue to treat her for community-acquired pneumonia. Cardiology on board and the plan is to keep the patient nothing by mouth from Tuesday midnight for possible cath/ stress test.
[2016-07-10 16:06] VITALS: BP 114/62
--- NOTE | 2016-07-10 16:26 | PN- Cardiology ---
Subjective Subjective: * Patient complains of a persistent mild discomfort over her left chest exacerbated by deep inhalation and manual palpation. * No rise in cardiac enzymes * Improved ECG * Normal EF of echo with physiologic pericardial effusion Objective Vital Signs and I&Os Vital Signs Date Time Temp Pulse Resp B/P Pulse O2 O2 Flow FiO2 Ox Delivery Rate 07/10 1606 98.6 71 16 114/62 91 Room Air 07/10 0745 98.2 84 18 120/72 96 Nasal 2.0L Cannula 07/10 0000 95 Nasal 2.0L Cannula 07/09 2330 98.4 90 18 130/74 95 Nasal 2.0L Cannula 07/09 2104 Nasal 2.0L Cannula Intake & Output 07/10 1600 07/10 0800 07/10 0000 07/09 1600 07/09 0800 07/09 0000 Intake Total 480 450 400 480 100 Output Total 400 Balance 480 50 400 480 100 Intake, IV 250 Intake, Oral 480 200 400 480 100 Number 0 Bowel Movements Output, Urine 400 Patient 1898 lb 180 lb Weight Physical Exam: General: WD/ obese female in NAD; alert and oriented x 3 Neck: no JVD Heart: RRR w/o murmur Lungs: clear bilaterally Extremities: no edema Assessment/Plan Assessment/Plan * This patient has risk factors for coronary artery disease but has ruled out for an [place] and has some atypical features to her chest discomfort. I have a moderate suspicion of flow limiting coronary artery disease an we will therefore risk stratify her with a pharmocologic stress test on Tuesday. This patient may have a pleuritis or radiculopathy in the C7 dermatome causing some of her discomfort. Continue aspirin and NTG. Continue telemetry? Yes
[2016-07-11] VITALS (7 sets, daily range): BP systolic 90–124; BP diastolic 60–70
--- NOTE | 2016-07-11 08:44 | PN- Housestaff ---
NAYELI ZAMORANO,TORIBIO 07/11/16 0843: Subjective Follow-up For: Chest discomfort, abnormal E ECG, pneumonia, generalized body ache Complaints: generalized body ache, generalized joint pain, redness on the right eye, headache Tele-Events Since Last Visit: Normal sinus rhythm, heart rate between 90 - 100, no any overnight events Subjective: Patient is seen and examined at the bedside. She was complaining of generalized body aches, generalized joint pain, swelling in the both hands and the pain, especially in the right thigh. She was also complaining of headache on the right temporal area. She was also having redness of the right eye and according to her , she was getting this symptoms,twice a month. Review of Systems Constitutional: Denies: malaise, weakness. EENTM: Reports: blurred vision (redness of the right eye), visual changes. Cardiovascular: Reports: chest pain, edema. Denies: orthopena, palpitations, peripheral edema. Respiratory: Denies: cough, hemoptysis, orthopnea, short of breath, sputum production. Gastrointestinal: Denies: abdominal pain, bloating, constipation, diarrhea, distention. Genitourinary: Denies: no symptoms. Musculoskeletal: Reports: back pain, joint pain, joint swelling, muscle pain, muscle stiffness, neck pain. Skin: Reports: erythema. Neurological/Psychological: Denies: no symptoms. Comments: Patient was complaining of generalized body ache, joint pain, any stiffness. She was complaining of headache, especially on right temporal region along with blurry vision and redness of her right eye. She had around 2 or 3 episodes can last 1 month. She was complaining of swelling of the JOINTS of her finger. She denies for raynauds phenomena. She is complaining of stiffness in the morning but it lasted less than an hour. Objective Last 24 Hrs of Vital Signs/I&O Vital Signs Date Time Temp Pulse Resp B/P Pulse O2 O2 Flow FiO2 Ox Delivery Rate 07/11 1600 98.8 78 18 116/60 93 Nasal 2.0L Cannula 07/11 0800 Nasal 2.0L Cannula 07/11 0750 98.2 95 20 108/60 96 Nasal 2.0L Cannula 07/11 0100 98.0 90 24 110/60 95 Nasal 2.0L Cannula 07/11 0003 98.1 96 20 90/60 93 07/11 0000 94 Nasal 2.0L Cannula Intake & Output 07/11 1600 07/11 0800 07/11 0000 Intake Total 480 450 480 Output Total 250 500 Balance 480 200 -20 Intake, IV 250 Intake, Oral 480 200 480 Output, Urine 250 500 Physical Exam General Appearance: Alert, Oriented X3, Cooperative, Moderate Distress Skin: generalized swelling of the joints Cardiovascular: Normal S1, Normal S2 Lungs: Clear to Auscultation, Normal Air Movement Abdomen: Soft, No Tenderness Neurological: Normal Speech Extremities: No Clubbing, No Cyanosis, No Edema, upper limb and forearm showed swelling of all joints with tenderness, redness and inflammation. She has difficulty in moving. Vascular: Normal Pulses, Pulses Symmetrical Assessment/Plan Assessment: This is a 61 y/o F with a PMH of dyslipidemia, right ankle injury s/p fusion on 2015, who presents to the ED with complaints of headache and pain radiating down both arms since this AM. According to the patient, she started to have a headache this morning, similar to the ones she has been having over the last 3 months. Associated with blurring of vision, no loss of vision, no associated nausea or vomiting. It was initially present all over the head and then localized to the right side. She reports that this headache is similar to the one she has been having. She also started to have pain in the right arm, majorly in the hand, radiating to the neck. This was associated with some shortness of breath. She also started to have pain in her left arm, which is new. Patient reports another similar episode of pain in the right arm, one year ago, which resolved by itself. She also reports having severe chest pain for several days, 2 years ago. She never saw a physician for it. When she later went to see her PCP, she was asked to go see a community living coach, which she never did. Plan - Generalized joint pain and redness of the sclera along with right sided temporal pain - * Discussed with Dr. Sharma, and he advised to order CRP and ESR along with rheumatoid factor/ANGELIC. * Our differentials for temporal arteritis, connective tissue disease, rheumatoid arthritis * Redness of the eye can be due to scleritis * Physiological pericardial effusion may be secondary to inflammatory changes in the pericardium * ESR come back positive-58, CRP-4.6 * We plannned to start patient on tablet prednisone 60 milligrams OD * We will advise the morning team to consider Rhematology consult * Rule out coronary artery disease * Trend trops and EKG - negative * Xray shoulder bilateral - no acute finding. * CPK to look for inflammatory myopathies - WNL * Nitro patch (if pain is relieved, this points to cardiac origin) * Cont aspirin, statin * Follow echo - grossly normal with EF > 55%, physiologic pericardial effusion present. * Follow cardio recs * NPO starting on the night of 07/11 for stress test Community Acquired PNA - there is patchy area of involvement in the of the right upper lobe. It can be secondary to inflammatory activity. Patient denies about recurrent episodes of asthma. * Cont ceftriaxone and Azithromycin. * Follow blood culture, sputum cultures. * Urine Legionella and Strep Pneumo - negative * Flu swab - negative Pain Pathway -Tylenol, Percocet and Dilaudid DVT PPx: ALP S / SubQ Lovenox Code Status -Full Code Problem List: 1. Vasculitis 2. Pneumonia 3. Temporal arteritis Pain Ratin Pain Location: Generalized joint pain Pain Goal: Remain pain free Pain Plan: [id number] Tomorrow's Labs & Rationales: none DVT/Prophylaxis: mechanical, pharmacological JOSÉ LUIS ZAMORANO,[facility] 07/11/16 1217: Attending MD Review Statement Attending Statement Attending MD Statement: examined this patient, discuss w/resident/PA/EMPLOYMENT RECRUITER, agreed w/resident/PA/EMPLOYMENT RECRUITER, discussed with family, reviewed EMR data (avail), discussed with nursing, discussed with case mgmt, reviewed images, amended to note Attending Assessment/Plan: 61-year-old female with a family history of coronary artery disease has been admitted to the floor with shortness of breath and left shoulder pain. She is being worked out to exclude coronary artery disease and is being treated for community-acquired pneumonia. Patient was seen and examined this morning. His vitals are stable and requiring 2 L of oxygen by nasal cannula. Labs noted and her white count with no leukocytosis, normal chemistry with hopes negative. Cultures so far negative. We will continue to treat her for community-acquired pneumonia. Cardiology on board and the plan is to keep the patient nothing by mouth from Tuesday midnight for possible cath/ stress test. Pt continues to c/o pain in her headache, shoulders and vision problems. ESR elevated, would start her on high dose steroid and would get a rheumatological consult.
--- NOTE | 2016-07-11 15:56 | PN- Cardiology ---
Subjective Subjective: * Patient continues to complain of a sharp persistent discomfort over her left upper chest and left neck. It is exacerbated by deep inhalation and manual palpation with some relief by changes in the position of her neck. She also reports a discomfort radiating around her right groin. * No rise in cardiac enzymes * Improved ECG * Normal EF on echo with physiologic pericardial effusion Objective Vital Signs and I&Os Vital Signs Date Time Temp Pulse Resp B/P Pulse O2 O2 Flow FiO2 Ox Delivery Rate 07/11 0800 Nasal 2.0L Cannula 07/11 0750 98.2 95 20 108/60 96 Nasal 2.0L Cannula 07/11 0100 98.0 90 24 110/60 95 Nasal 2.0L Cannula 07/11 0003 98.1 96 20 90/60 93 07/11 0000 94 Nasal 2.0L Cannula 07/10 1606 98.6 71 16 114/62 91 Room Air Intake & Output 07/11 1600 07/11 0800 07/11 0000 07/10 1600 07/10 0800 07/10 0000 Intake Total 480 450 480 480 450 400 Output Total 250 500 400 Balance 480 200 -20 480 50 400 Intake, IV 250 250 Intake, Oral 480 200 480 480 200 400 Number 0 Bowel Movements Output, Urine 250 500 400 Physical Exam: General: WD/ obese female in NAD; alert and oriented x 3 Neck: no JVD Heart: RRR w/o murmur Lungs: clear bilaterally Extremities: no edema Assessment/Plan Assessment/Plan * This patient has risk factors for coronary artery disease but has ruled out for an MS and has some atypical features to her chest discomfort. I have a moderate suspicion of flow limiting coronary artery disease an we will therefore risk stratify her with a pharmocologic stress test tomorrow. This patient may have a pleuritis or radiculopathy in the C7 dermatome causing some of her discomfort. Continue aspirin and NTG. * The patient may also have sciatic pain on the right. Agree with a trial of steroid and a rheumatology consult. Continue telemetry? No
[2016-07-12 07:00] VITALS: BP 124/68
--- NOTE | 2016-07-12 07:31 | PN- Housestaff ---
NAHID VELÁSQUEZ 07/12/16 0730: Subjective Follow-up For: Unstable angina Community-acquired pneumonia Diffuse joint pains and myalgia Right-sided conjunctivitis with facial rash Subjective: Patient seen and examined this morning. Sitting comfortably on her bed. Patient reports off right temporalis region tenderness. She was started on steroids yesterday and reports an improvement in her diffuse joint pains and myalgia. Patient has been kept nothing by mouth for possible pharmacological stress test today. Vitals and labs noted Review of Systems Constitutional: Reports: see HPI. Objective Last 24 Hrs of Vital Signs/I&O Vital Signs Date Time Temp Pulse Resp B/P Pulse O2 O2 Flow FiO2 Ox Delivery Rate 07/12 0700 98.0 70 20 124/68 94 Nasal 2.0L Cannula 07/12 0000 95 Nasal 2.0L Cannula 07/11 2349 98.4 80 20 117/70 95 Nasal 2.0L Cannula 07/11 2021 87 110/66 07/11 2012 100 124/70 07/11 1600 98.8 78 18 116/60 93 Nasal 2.0L Cannula Intake & Output 07/12 1600 07/12 0800 07/12 0000 Intake Total 250 240 Output Total Balance 250 240 Intake, IV 250 Intake, Oral 0 240 Physical Exam General Appearance: Alert, Oriented X3, Cooperative, No Acute Distress Skin: No Rashes, No Breakdown HEENT: Atraumatic, right-sided maxillary rash with right red eye Tenderness to palpation on right temporal region Neck: Supple Cardiovascular: Normal S1, Normal S2 Lungs: Clear to Auscultation, Normal Air Movement Abdomen: Normal Bowel Sounds, Soft, No Tenderness Neurological: Normal Speech, Normal Tone Extremities: No Edema Current Medications: Current Medications Sig/Lakhwinder Start time Last Medication Dose Route Stop Time Status Admin Acetaminophen 650 MG Q6P PRN 07/09 0300 AC 07/09 PO 1929 Aspirin 81 MG DAILY 07/10 1000 AC 07/12 PO 0849 Atorvastatin Calcium 40 MG 1700 07/09 1700 AC 07/11 PO 1526 Azithromycin 500 MG 0000 07/10 0000 DC 07/11 Dextrose/Water 250 ML IV 2319 Ceftriaxone Sodium 1,000 MG 0000 07/10 0000 DC 07/11 IV 2319 Cephalexin 250 MG Q6 07/12 1200 UNVr PO Enoxaparin Sodium 40 MG DAILY 07/09 1000 AC 07/12 SC 0849 Guaifenesin 10 ML Q4P PRN 07/09 1800 AC 07/09 PO 1925 Hydromorphone HCl 0.5 MG Q4-PRN PRN 07/11 1545 AC 07/12 IV 0630 Hydromorphone HCl 0.5 MG Q6PRN PRN 07/09 0330 DC 07/11 IV 1219 Nitroglycerin 0.4 MG Q 5 MINUTES X 3 DO.. 07/09 1115 AC 07/11 SL 2021 Nitroglycerin 0.2 MG DAILY PRN 07/09 1100 AC TOP Oxycodone/ 1 TAB Q6P PRN 07/09 0300 AC 07/11 Acetaminophen PO 2320 Prednisone 60 MG DAILY 07/11 1215 AC 07/12 PO 0848 Last 24 Hrs of Lab/Juaquin Results Last 24 Hrs of Labs/Mics: Laboratory Tests 07/12/16 0900: CBC w Diff NO MAN DIFF REQ, RBC 4.28, MCV 84.1, MCH 28.6, RDW 13.5, MPV 9.2, Gran % 73.7, Lymphocytes % 17.8 L, Monocytes % 7.7, Eosinophils % 0.2, Basophils % 0.6, Absolute Granulocytes 8.9 H, Absolute Lymphocytes 2.1, Absolute Monocytes 0.9 H, Absolute Eosinophils 0, Absolute Basophils 0.1, PUBS MCHC 34.0 07/11/162054: Troponin I 0.01 Assessment/Plan Assessment: This is a 61 y/o F with a PMH of dyslipidemia, right ankle injury s/p fusion on 2015, who presents to the ED with complaints of headache and pain radiating down both arms since this AM. According to the patient, she started to have a headache this morning, similar to the ones she has been having over the last 3 months. Associated with blurring of vision, no loss of vision, no associated nausea or vomiting. It was initially present all over the head and then localized to the right side. She reports that this headache is similar to the one she has been having. She also started to have pain in the right arm, majorly in the hand, radiating to the neck. This was associated with some shortness of breath. She also started to have pain in her left arm, which is new. Patient reports another similar episode of pain in the right arm, one year ago, which resolved by itself. She also reports having severe chest pain for several days, 2 years ago. She never saw a physician for it. When she later went to see her PCP, she was asked to go see a skoog machine operator, which she never did. Plan - Generalized joint pain and redness of the sclera along with right sided temporal pain - Patient had elevated ESR and C-reactive protein at 58 and 4.6 respectively on slightly increased from the previous values. Patient was empirically started on 60 mg of prednisone daily for possible temporalis arthritis as the patient is having pain in the right temporalis region. Rheumatology consult has been placed, will follow the recommendations Patient has our physiological or cardial effusion on echo which could be normal or due to inflammatory changes in pericardium Rule out coronary artery disease Patient has been admitted for unstable angina, her troponins have been negative She had some flattening of T waves in the EKG which is stable now Dr. Enriquez is on board, the plan is that patient will have a pharmacological stress test done today will follow-up results Patient is currently on nitroglycerin patch and sublingual nitroglycerin Will continue aspirin and statin Community Acquired PNA Patient was treated for community-acquired pneumonia with ceftriaxone and azithromycin, her respiratory status looks stable she will be switched to by mouth Keflex today. Her urine Legionella, influenza and strep pneumo are negative Pain Pathway -Tylenol, Percocet and Dilaudid DVT PPx: ALP S/ SubQ Lovenox Code Status -Full Code Problem List: 1. Pneumonia 2. Neuropathy Pain Ratin Pain Location: Diffuse body pains Pain Goal: Pain 4 or less Pain Plan: Tylenol Percocet Dilaudid Tomorrow's Labs & Rationales: None KENDALL LOZANO MD 07/12/16 1356: Attending MD Review Statement Attending Statement Attending MD Statement: examined this patient, discuss w/resident/PA/PAYROLL MASTER, agreed w/resident/PA/PAYROLL MASTER, reviewed EMR data (avail) Attending Assessment/Plan: 61F admitted for community acquired pneumonia, treated with Ceftriaxone and Azithromycin now with improvement, right sided temporal pain and scleritis, now on Prednisone, with several episodes of severe left sided chest pain at home, currently undergoing nuclear stress test. Plan - Continue on telemetry - Follow up stress test results - Follow cardiology recommendations - Continue Prednisone - Rheumatology consult - Convert antibiotics to PO - Continue ASA, statin, nitrates - Continue home medications - DVT PPx
[2016-07-12 09:11] LABS: ABSOLUTE BASOPHIL COUNT 0.1 /CUMM (0.0-0.2); ABSOLUTE EOSINOPHIL COUNT 0 /CUMM (0.0-0.7); ABSOLUTE GRANULOCYTE CT 8.9 /CUMM (1.4-6.5); ABSOLUTE LYMPH COUNT 2.1 /CUMM (1.2-3.4); ABSOLUTE MONOCYTE COUNT 0.9 /CUMM (0.10-0.60); BASOPHIL % 0.6 % (0.0-2.0); EOSINOPHIL % 0.2 % (0-5); GRANULOCYTE % 73.7 % (42.2-75.2); MEAN CORPUSCULAR HGB 28.6 PG (27.0-31.0); MEAN CORPUSCULAR VOLUME 84.1 FL (81.0-99.0); MEAN PLATELET VOLUME 9.2 FL (7.4-10.4); PLATELET COUNT 248 /CUMM (130-400); RBC DISTRIBUTION WIDTH 13.5 % (11.5-14.5); RED BLOOD CELL CT 4.28 /CUMM (4.20-5.40); WHITE BLOOD CELL COUNT 12.1 /CUMM (4.8-10.8)
--- NOTE | 2016-07-12 14:30 | PN- Cardiology ---
Subjective Subjective: The patient continues to have mild atypical chest pain which is increased with inspiration. No shortness of breath. No diaphoresis. No palpitations. No nausea or vomiting. No lightheadedness or dizziness. Objective Vital Signs and I&Os Vital Signs Date Time Temp Pulse Resp B/P Pulse O2 O2 Flow FiO2 Ox Delivery Rate 07/12 0700 98.0 70 20 124/68 94 Nasal 2.0L Cannula 07/12 0000 95 Nasal 2.0L Cannula 07/11 2349 98.4 80 20 117/70 95 Nasal 2.0L Cannula 07/11 2020 87 110/66 07/11 2012 100 124/70 07/11 1600 98.8 78 18 116/60 93 Nasal 2.0L Cannula Intake & Output 07/12 1600 07/12 0800 07/12 0000 07/11 1600 07/11 0800 07/11 0000 Intake Total 250 240 480 450 480 Output Total 250 500 Balance 250 240 480 200 -20 Intake, IV 250 250 Intake, Oral 0 240 480 200 480 Output, Urine 250 500 Patient 190 lb Weight Physical Exam: Gen: The patient is in no acute distress HEENT: Normal nose, ears, and oropharynx. Pupils equal bilaterally. Conjunctiva normal. Neck: Supple with no JVD, no masses, and no thyromegaly Lungs: Clear to auscultation with normal respiratory effort Heart: RRR, S1, S2, 1/6 systolic murmur. No peripheral edema, 2+ pulses in the lower extremities bilaterally Abdomen: Soft, nontender, no masses. No hepatomegaly. No splenomegaly Extremities: No clubbing or cyanosis. Normal muscle strength in the upper and lower extremities Skin: Normal skin turgor with no skin ulcers or lesions noted. Current Medications: Current Medications Sig/Lakhwinder Start time Last Medication Dose Route Stop Time Status Admin Acetaminophen 650 MG Q6P PRN 07/09 0300 AC 07/09 PO 1929 Aspirin 81 MG DAILY 07/10 1000 AC 07/12 PO 0849 Atorvastatin Calcium 40 MG 1700 07/09 1700 AC 07/11 PO 1526 Azithromycin 500 MG 0000 07/10 0000 DC 07/11 Dextrose/Water 250 ML IV 2319 Ceftriaxone Sodium 1,000 MG 0000 07/10 0000 DC 07/11 IV 2319 Cephalexin 250 MG Q6 07/12 1200 AC PO Dipyridamole 50 MG ONE ONE 07/12 1100 AC Dextrose/Water 30 ML IV 07/14 0259 Enoxaparin Sodium 40 MG DAILY 07/09 1000 AC 07/12 SC 0849 Guaifenesin 10 ML Q4P PRN 07/09 1800 AC 07/09 PO 1925 Hydromorphone HCl 0.5 MG Q4-PRN PRN 07/11 1545 AC 07/12 IV 0630 Hydromorphone HCl 0.5 MG Q6PRN PRN 07/09 0330 DC 07/11 IV 1219 Nitroglycerin 0.4 MG Q 5 MINUTES X 3 DO.. 07/09 1115 AC 07/11 SL 2021 Nitroglycerin 0.2 MG DAILY PRN 07/09 1100 AC TOP Oxycodone/ 1 TAB Q6P PRN 07/09 0300 AC 07/11 Acetaminophen PO 2320 Prednisone 60 MG DAILY 07/11 1215 AC 07/12 PO 0848 Results Last 48 Hrs of Labs/Mics: Laboratory Tests 07/12/16 0900: CBC w Diff NO MAN DIFF REQ, RBC 4.28, MCV 84.1, MCH 28.6, RDW 13.5, MPV 9.2, Gran % 73.7, Lymphocytes % 17.8 L, Monocytes % 7.7, Eosinophils % 0.2, Basophils % 0.6, Absolute Granulocytes 8.9 H, Absolute Lymphocytes 2.1, Absolute Monocytes 0.9 H, Absolute Eosinophils 0, Absolute Basophils 0.1, PUBS MCHC 34.0 07/11/16 2055: Troponin I 0.01 07/11/16 0850: ESR Westergren 58 H Assessment/Plan Assessment/Plan Assessment: 1. Chest pain, ruled out for myocardial infarction 2. Community-acquired pneumonia 3. Hyperlipidemia plan: * Pharmacologic nuclear stress test to rule out ischemia. This will be performed as a 2 day study with the 1st part today * antibiotics and steroids as per medical service * continue aspirin * continue statin therapy Continue telemetry? Yes
--- NOTE | 2016-07-12 15:17 | IV DIPYRIDAMOLE NUCLEAR STRESS ---
Clinical Diagnosis: Angina Die Operator: Taco Moore IV DIPYRIDAMOLE INFUSED: 50 mg IV AMINOPHYLLINE INFUSED: 125 mg PATIENT WEIGHT: 189 lbs INTERPRETATION: The patient's baseline EKG showed normal sinus rhythm at 72 BPM. Baseline B/P 130/80. The patient received 50 mg of dipyridamole infused intravenously over a 4 minute period. TC-99M or Myoview was injected after dipyridamole infusion. The patient complained of chest discomfort. There were no EKG changes seen following pharmacologic infusion. IMPRESSION: The test was supervised by the interpreting Loss Control Technician, who was in attendance during the entire test. No EKG evidence of stress induced myocardial ischemia. See separately dictated Nuclear Report.
[2016-07-12 16:07] VITALS: BP 118/76
--- NOTE | 2016-07-12 17:23 | Cons- Rheumatology ---
General Information and HPI Consulting Request Date of Consult: 07/12/16 Requested By: MAJOR ZAMORANO,GEO [place] Reason for Consult: Evaluate myalgias Source of Information: patient Exam Limitations: no limitations History of Present Illness: 61 yowf developed the sudden onset of pain in both thumbs 3 days ago. This later began ascending her arms to her shoulders. Thereafter she had chest pain that bought her to the ER. She denies any previous joint pains. She has a sister that has SLE. In hospital she has 2 elevated sed rates 3 days apart of 38 and 58 and the question of Temporal Arteritis or PMR is raised. Allergies/Medications Allergies: Coded Allergies: aspirin (SENSITIVE 07/08/16) Home Med List: No Known Home Medications Current Medications: Current Medications Sig/Lakhwinder Start time Last Medication Dose Route Stop Time Status Admin Acetaminophen 650 MG Q6P PRN 07/09 0300 AC 07/09 PO 1929 Aspirin 81 MG DAILY 07/10 1000 AC 07/12 PO 0849 Atorvastatin Calcium 40 MG 1700 07/09 1700 AC 07/12 PO 1630 Azithromycin 500 MG 0000 07/10 0000 DC 07/11 Dextrose/Water 250 ML IV 2319 Ceftriaxone Sodium 1,000 MG 0000 07/10 0000 DC 07/11 IV 2319 Cephalexin 250 MG Q6 07/12 1200 AC 07/12 PO 1630 Dipyridamole 50 MG ONE ONE 07/12 1100 AC Dextrose/Water 30 ML IV 07/14 0259 Enoxaparin Sodium 40 MG DAILY 07/09 1000 AC 07/12 SC 0849 Guaifenesin 10 ML Q4P PRN 07/09 1800 AC 07/12 PO 1636 Hydromorphone HCl 0.5 MG Q4-PRN PRN 07/11 1545 AC 07/12 IV 0630 Nitroglycerin 0.4 MG Q 5 MINUTES X 3 DO.. 07/09 1115 AC 07/11 SL 2021 Nitroglycerin 0.2 MG DAILY PRN 07/09 1100 AC TOP Oxycodone/ 1 TAB Q6P PRN 07/09 0300 AC 07/12 Acetaminophen PO 1632 Prednisone 60 MG DAILY 07/11 1215 AC 07/12 PO 0848 Review of Systems Review of Systems: No unilateral temporal artery pain noted but she gets bitemporal headaches. No scalp tenderness or visual problems. However she does describe redness of usually her left eye that receeds spontaneously. Past History Travel History Traveled to [place] past 21 day No Medical History Neurological: NONE EENT: NONE Cardiovascular: BORDERLINE CHOL Respiratory: NONE Gastrointestinal: NONE Hepatic: NONE Renal: NONE Musculoskeletal: NONE Psychiatric: NONE Endocrine: BORDERLINE DM Surgical History Surgical History: non-contributory Psychosocial History Smoking Status: Never Smoked Exam & Diagnostic Data Vital Signs and I&O Vital Signs Date Time Temp Pulse Resp B/P Pulse O2 O2 Flow FiO2 Ox Delivery Rate 07/12 1607 97.6 63 18 118/76 96 Nasal 2.0L Cannula 07/12 0700 98.0 70 20 124/68 94 Nasal 2.0L Cannula 07/12 0000 95 Nasal 2.0L Cannula 07/11 2349 98.4 80 20 117/70 95 Nasal 2.0L Cannula 07/11 2020 87 110/66 07/11 2012 100 124/70 Intake & Output 07/12 1600 07/12 0800 07/12 0000 Intake Total 250 240 Output Total Balance 250 240 Intake, IV 250 Intake, Oral 0 240 Patient 190 lb Weight Physical Exam: On examination she's a well-developed well-nourished slightly obese female. Examination of her scalp does not reveal any induration or tenderness of her temporal arteries. 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 Her wrists and elbows have full range of motion there are no subcutaneous nodules. He is able to fully abduct her shoulders over her head. There is some mild to moderate spasm of the trapezius muscles on either side of her cervical spine. Her hips and knees and normal. She has limited motion of her left ankle from previous fracture. Assessment/Plan Assessment: Overall I have no suspicion whatsoever that this patient has temporal arteritis. She also does not seem to have polymyalgia rheumatica. Her symptoms were localized to the thumb joints bilaterally which are currently unimpressive on examination. He modestly elevated sedimentation rate of course is very nonspecific. He did undergo a MRI of her cervical spine which reveals normal degenerative changes at C5 6 and C6 7 levels. X-rays of both shoulders were unremarkable indicating soft tissue rather than bony abnormalities. Recommendations: I would recommend obtaining a rheumatoid factor and anti-CCP antibody even though I do not feel this is rheumatoid arthritis. Her ANGELIC is negative. The fact that her sister has SLE is of interest but not pertinent to her current symptoms. Recommended that she has any further arthralgias she should use NSAIDs since she does not appear to have any contraindication. Consult Acknowledgment - Thank you for your consult request.
[2016-07-13 00:13] VITALS: BP 116/74
--- NOTE | 2016-07-13 07:40 | PN- Housestaff ---
NAHID VELÁSQUEZ 07/13/16 0740: Subjective Follow-up For: Diffuse myalgias Pneumonia Subjective: Patient was in tears this morning due to her left shoulder pain. Patient was evaluated by rheumatology yesterday, there is low suspicion that she has temporal arteritis. Patient will get the second part of stress test done today and probably will be discharged after that. Her morning labs are pending, she stays stable on 2 L of nasal cannula. Review of Systems Constitutional: Reports: see HPI. Objective Last 24 Hrs of Vital Signs/I&O Vital Signs Date Time Temp Pulse Resp B/P Pulse O2 O2 Flow FiO2 Ox Delivery Rate 07/13 0013 95.8 75 18 116/74 95 Nasal 2.0L Cannula 07/13 0000 Nasal 2.0L Cannula 07/12 1607 97.6 63 18 118/76 96 Nasal 2.0L Cannula 07/12 1600 96 Room Air Intake & Output 07/13 0800 07/13 0000 07/12 1600 Intake Total 120 450 Output Total 400 Balance -280 450 Intake, IV 0 Intake, Oral 120 450 Number 0 Bowel Movements Output, Urine 400 Patient 85.956 kg Weight Physical Exam General Appearance: Alert, Oriented X3, Cooperative, Moderate Distress Skin: No Rashes HEENT: Atraumatic Neck: Supple Lymphatic: Cervical nl Cardiovascular: Normal S1, Normal S2 Lungs: Clear to Auscultation, Normal Air Movement Abdomen: Soft, No Tenderness, No Hepatospenomegaly Extremities: No Edema, Normal Pulses, left shoulder decreased strength and painful passive movement Current Medications: Current Medications Sig/Lakhwinder Start time Last Medication Dose Route Stop Time Status Admin Acetaminophen 650 MG Q6P PRN 07/09 0300 AC 07/09 PO 1929 Aspirin 81 MG DAILY 07/10 1000 AC 07/13 PO 0908 Atorvastatin Calcium 40 MG 1700 07/09 1700 AC 07/12 PO 1630 Azithromycin 500 MG 0000 07/10 0000 DC 07/11 Dextrose/Water 250 ML IV 2319 Ceftriaxone Sodium 1,000 MG 0000 07/10 0000 DC 07/11 IV 2319 Cephalexin 250 MG Q6H 07/12 1630 AC 07/13 PO 0438 Cephalexin 250 MG Q6 07/12 1200 DC 07/12 PO 1630 Dipyridamole 50 MG ONE ONE 07/12 1100 AC Dextrose/Water 30 ML IV 07/14 0259 Enoxaparin Sodium 40 MG DAILY 07/09 1000 AC 07/13 SC 0908 Guaifenesin 10 ML Q4P PRN 07/09 1800 AC 07/12 PO 1636 Hydromorphone HCl 0.5 MG Q8P PRN 07/13 0900 AC 07/13 IV 0906 Hydromorphone HCl 0.5 MG Q4-PRN PRN 07/11 1545 DC 07/13 IV 0735 Ibuprofen 600 MG Q8P PRN 07/13 0800 AC PO Nitroglycerin 0.4 MG Q 5 MINUTES X 3 DO.. 07/09 1115 AC 07/11 SL 2021 Nitroglycerin 0.2 MG DAILY PRN 07/09 1100 AC TOP Oxycodone/ 1 TAB Q6P PRN 07/09 0300 AC 07/13 Acetaminophen PO 0440 Polycarbophil 625 MG DAILY 07/12 1815 AC 07/13 PO 0908 Prednisone 60 MG DAILY 07/11 1215 DC 07/12 PO 0848 Last 24 Hrs of Lab/Juaquin Results Last 24 Hrs of Labs/Mics: Laboratory Tests 07/13/16 0610: CBC w Diff NO MAN DIFF REQ, RBC 4.13 L, MCV 86.1, MCH 28.0, RDW 13.6, MPV 10.1, Gran % 58.9, Lymphocytes % 32.3, Monocytes % 7.3, Eosinophils % 1.1, Basophils % 0.4, Absolute Granulocytes 6.0, Absolute Lymphocytes 3.3, Absolute Monocytes 0.7 H, Absolute Eosinophils 0.1, Absolute Basophils 0, PUBS MCHC 32.5 L, Rheum Factor Semi-Quant 14.9 H Assessment/Plan Assessment: This is a 61 y/o F with a PMH of dyslipidemia, right ankle injury s/p fusion on 2015, who presents to the ED with complaints of headache and pain radiating down both arms since this AM. According to the patient, she started to have a headache this morning, similar to the ones she has been having over the last 3 months. Associated with blurring of vision, no loss of vision, no associated nausea or vomiting. It was initially present all over the head and then localized to the right side. She reports that this headache is similar to the one she has been having. She also started to have pain in the right arm, majorly in the hand, radiating to the neck. This was associated with some shortness of breath. She also started to have pain in her left arm, which is new. Patient reports another similar episode of pain in the right arm, one year ago, which resolved by itself. She also reports having severe chest pain for several days, 2 years ago. She never saw a physician for it. When she later went to see her PCP, she was asked to go see a informatics consultant, which she never did. Plan - Generalized joint pain and redness of the sclera along with right sided temporal pain - Patient had elevated ESR and C-reactive protein at 58 and 4.6 respectively on slightly increased from the previous values. Her ANGELIC is negative, she was evaluated by rheumatology yesterday. It is unlikely that she has temporal arteritis. She is advised to use NSAIDs for her joint pains. We will follow-up the results of rheumatoid factor and anti-CCP. Patient has physiological pericardial effusion on echo which could be normal or due to inflammatory changes in pericardium Rule out coronary artery disease Patient has been admitted for unstable angina, her troponins have been negative She had some flattening of T waves in the EKG which is stable now Patient had the first part of stress test done today, she will complete her second part and would likely discharge her home to follow-up with Dr. Enriquez in the office. Patient is currently on nitroglycerin patch and sublingual nitroglycerin Will continue aspirin and statin Community Acquired PNA Patient was treated for community-acquired pneumonia with ceftriaxone and azithromycin, her respiratory status looks stable she is switched to by mouth Keflex today. Will complete a total 7 day course.. Her urine Legionella, influenza and strep pneumo are negative Pain Pathway -Tylenol, Percocet and Dilaudid DVT PPx: ALP S/ SubQ Lovenox Code Status -Full Code Problem List: 1. Pneumonia Pain Ratin Pain Location: multiple hand joints Pain Goal: Pain 4 or less Pain Plan: tylenol prn for pain Tomorrow's Labs & Rationales: none KENDALL LOZANO MD 07/13/16 1127: Attending MD Review Statement Attending Statement Attending MD Statement: examined this patient, discuss w/resident/PA/ELECTRIC RELAY TESTER, agreed w/resident/PA/ELECTRIC RELAY TESTER, reviewed EMR data (avail) Attending Assessment/Plan: 61F admitted for community acquired pneumonia, treated with Ceftriaxone and Azithromycin now with improvement, right sided temporal pain and scleritis, now on Prednisone, with several episodes of severe left sided chest pain at home, currently undergoing nuclear stress test. Still complains of severe left shoulder pain, as well as back and neck pain. Second part of nuclear stress test is pending. No telemetry events. Plan - Continue on telemetry - Follow up stress test results - Follow cardiology recommendations - Discontinue Prednisone - Rheumatology consult - Convert antibiotics to PO - Continue ASA, statin, nitrates - Continue home medications - DVT PPx - If stress test is normal, may be discharged home with outpatient physical therapy referral and cardiology referral
[2016-07-13 07:56] LABS: ABSOLUTE BASOPHIL COUNT 0 /CUMM (0.0-0.2); ABSOLUTE EOSINOPHIL COUNT 0.1 /CUMM (0.0-0.7); ABSOLUTE LYMPH COUNT 3.3 /CUMM (1.2-3.4); ABSOLUTE MONOCYTE COUNT 0.7 /CUMM (0.10-0.60); BASOPHIL % 0.4 % (0.0-2.0); EOSINOPHIL % 1.1 % (0-5); GRANULOCYTE % 58.9 % (42.2-75.2); HEMATOCRIT 35.6 % (37-47); MEAN CORPUSCULAR HGB CONC 32.5 G/DL (33.0-37.0); MEAN CORPUSCULAR VOLUME 86.1 FL (81.0-99.0); MEAN PLATELET VOLUME 10.1 FL (7.4-10.4); PLATELET COUNT 242 /CUMM (130-400); RBC DISTRIBUTION WIDTH 13.6 % (11.5-14.5); RED BLOOD CELL CT 4.13 /CUMM (4.20-5.40); WHITE BLOOD CELL COUNT 10.2 /CUMM (4.8-10.8)
[2016-07-13 08:20] VITALS: BP 120/78
[2016-07-13] MEDS ORDERED: IBUPROFEN600 M1 PO (09:56)
[2016-07-13] MEDS ORDERED: ASPIRIN81 M4 PO (09:56)
[2016-07-13] MEDS ORDERED: CEPHALEXIN250 M2 PO (09:56)
[2016-07-13] MEDS ORDERED: ATORVASTATIN CA40 M1 PO (09:56)
[2016-07-13] MEDS ORDERED: LIDODERM1 EACH TOP (09:58)
--- NOTE | 2016-07-13 10:00 | Patient Discharge Instructions ---
Discharge Instructions General Discharge Information Special Instructions: Please follow up with PCP and [employer] Unit Adjuster upon discharge. Acute Coronary Syndrome Inclusion Criteria At DC or during hospital stay patient has or had the following: ACS DIAGNOSIS No Discharge Core Measures Meds if any: Prescribed or Continued at Discharge Meds if any: NOT Prescribed or Continued at Discharge Congestive Heart Failure Inclusion Criteria At DC or during hospital stay patient has or had the following: CHF DIAGNOSIS No Discharge Core Measures Meds if any: Prescribed or Continued at Discharge Meds if any: NOT Prescribed or Continued at Discharge Cerebrovascular accident Inclusion Criteria At DC or during hospital stay patient has or had the following: CVA/TIA Diagnosis No Discharge Core Measures Meds if any: Prescribed or Continued at Discharge Meds if any: NOT Prescribed or Continued at Discharge Venous thromboembolism Inclusion Criteria VTE Diagnosis No VTE Type NONE VTE Confirmed by (Test) NONE Discharge Core Measures - Per Current guidelines, there needs to be overlap - treatment for the first 5 days of Warfarin therapy. - If discharged on Warfarin prior to 5 days of - overlap therapy, the patient will need to be - assessed for post discharge needs including - *Post discharge parental anticoagulation - *Warfarin and/or parental anticoagulation education - *Follow up date to check INR post discharge At least 5 days overlap therapy as Inpatient No Meds if any: Prescribed or Continued at Discharge Note: Overlap Therapy is Warfarin and Anticoagulant Meds if any: NOT Prescribed or Continued at Discharge
--- NOTE | 2016-07-13 12:34 | PN- Cardiology ---
Subjective Subjective: The patient is noted to be having significant discomfort radiating from her left hand up the left arm to the left shoulder. She completed the second portion of her nuclear stress test today. No shortness of breath. No palpitations. No chest pain. No nausea or vomiting. No lightheadedness or dizziness. Objective Vital Signs and I&Os Vital Signs Date Time Temp Pulse Resp B/P Pulse O2 O2 Flow FiO2 Ox Delivery Rate 07/13 0820 97.8 59 16 120/78 95 Nasal 2.0L Cannula 07/13 0013 95.8 75 18 116/74 95 Nasal 2.0L Cannula 07/13 0000 Nasal 2.0L Cannula 07/12 1607 97.6 63 18 118/76 96 Nasal 2.0L Cannula 07/12 1600 96 Room Air Intake & Output 07/13 1600 07/13 0800 07/13 0000 07/12 1600 07/12 0800 07/12 0000 Intake Total 120 450 250 240 Output Total 400 Balance -280 450 250 240 Intake, IV 0 250 Intake, Oral 120 450 0 240 Number 0 Bowel Movements Output, Urine 400 Patient 190 lb Weight Physical Exam: Gen: The patient is in no acute distress HEENT: Normal nose, ears, and oropharynx. Pupils equal bilaterally. Conjunctiva normal. Neck: Supple with no JVD, no masses, and no thyromegaly Lungs: Clear to auscultation with normal respiratory effort Heart: RRR, S1, S2, 1/6 systolic murmur. No peripheral edema, 2+ pulses in the lower extremities bilaterally Abdomen: Soft, nontender, no masses. No hepatomegaly. No splenomegaly Extremities: No clubbing or cyanosis. Normal muscle strength in the upper and lower extremities Skin: Normal skin turgor with no skin ulcers or lesions noted. Current Medications: Current Medications Sig/Lakhwinder Start time Last Medication Dose Route Stop Time Status Admin Acetaminophen 650 MG Q6P PRN 07/09 0300 AC 07/09 PO 1929 Aspirin 81 MG DAILY 07/10 1000 AC 07/13 PO 0908 Atorvastatin Calcium 40 MG 1700 07/09 1700 AC 07/12 PO 1630 Cephalexin 250 MG Q6H 07/12 1630 AC 07/13 PO 1058 Cephalexin 250 MG Q6 07/12 1200 DC 07/12 PO 1630 Dipyridamole 50 MG ONE ONE 07/12 1100 AC Dextrose/Water 30 ML IV 07/14 0259 Enoxaparin Sodium 40 MG DAILY 07/09 1000 AC 07/13 SC 0908 Guaifenesin 10 ML Q4P PRN 07/09 1800 AC 07/12 PO 1636 Hydromorphone HCl 0.5 MG Q8P PRN 07/13 0900 AC 07/13 IV 0906 Hydromorphone HCl 0.5 MG Q4-PRN PRN 07/11 1545 DC 07/13 IV 0735 Ibuprofen 600 MG Q8P PRN 07/13 0800 AC 07/13 PO 1058 Lidocaine 1 PAT DAILY 07/13 1000 AC 07/13 EXT 1151 Nitroglycerin 0.4 MG Q 5 MINUTES X 3 DO.. 07/09 1115 AC 07/11 SL 2021 Nitroglycerin 0.2 MG DAILY PRN 07/09 1100 AC TOP Oxycodone/ 1 TAB Q6P PRN 07/09 0300 AC 07/13 Acetaminophen PO 1151 Polycarbophil 625 MG DAILY 07/12 1815 AC 07/13 PO 0908 Polyethylene Glycol 17 GM DAILY PRN 07/13 1045 AC PO Prednisone 60 MG DAILY 07/11 1215 DC 07/12 PO 0848 Senna/Docusate Sodium 2 TAB DAILY 07/13 1045 AC 07/13 PO 1151 Results Last 48 Hrs of Labs/Mics: Laboratory Tests 07/13/16 0610: CBC w Diff NO MAN DIFF REQ, RBC 4.13 L, MCV 86.1, MCH 28.0, RDW 13.6, MPV 10.1, Gran % 58.9, Lymphocytes % 32.3, Monocytes % 7.3, Eosinophils % 1.1, Basophils % 0.4, Absolute Granulocytes 6.0, Absolute Lymphocytes 3.3, Absolute Monocytes 0.7 H, Absolute Eosinophils 0.1, Absolute Basophils 0, PUBS MCHC 32.5 L, Rheum Factor Semi-Quant 14.9 H 07/12/16 0900: CBC w Diff NO MAN DIFF REQ, RBC 4.28, MCV 84.1, MCH 28.6, RDW 13.5, MPV 9.2, Gran % 73.7, Lymphocytes % 17.8 L, Monocytes % 7.7, Eosinophils % 0.2, Basophils % 0.6, Absolute Granulocytes 8.9 H, Absolute Lymphocytes 2.1, Absolute Monocytes 0.9 H, Absolute Eosinophils 0, Absolute Basophils 0.1, PUBS MCHC 34.0 07/11/162054: Troponin I 0.01 Assessment/Plan Assessment/Plan Assessment: 1. Chest pain, ruled out for myocardial infarction 2. Community-acquired pneumonia 3. Hyperlipidemia 4. Left arm pain plan: * The second portion of the pharmacologic nuclear stress test has been completed , and the results are pending * continue aspirin * continue statin therapy * If no significant ischemia is seen on the nuclear stress test results, and the patient will be cleared for discharge from a cardiac standpoint. * Follow up with Dr. Brown in 2 weeks. Continue telemetry? No
--- NOTE | 2016-07-13 13:47 | NUCLEAR MEDICINE REPORT ---
PERSANTINE STRESS AND RESTING SPECT MYOCARDIAL PERFUSION IMAGING STUDY WITH GATED SPECT IMAGES: CLINICAL INDICATION: Angina. PROCEDURE: Regional myocardial perfusion was assessed using a 2 day protocol. Stress images were obtained on 07/12/2016 following the intravenous administration of 33.5 mCi Tc 99m Myoview. Stress consisted of 50 mg Persantine given intravenously. Following the sestamibi injection, 125 mg aminophylline was given intravenously. Rest images were obtained 07/13/2016 following the intravenous administration of 27.7 mCi Technetium 99m Myoview. Single photon emission tomographic (SPECT) images were obtained. SPECT images were acquired in a 64 x 64 matrix of 64 projections over 180 degrees. These were reconstructed into standard short axis, horizontal and vertical long axis cardiac projections. FINDINGS: The post stress images show the left ventricular chamber to be normal in size. There is a small focus of decreased activity at the apex which appears more prominent than typical physiological thinning at the apex. In addition there is mildly decreased activity in a small region in the adjacent apical anterior wall. Activity in the other thomas appears normal. The rest images are similar to the post stress images, per the apical abnormality appears slightly larger and extends into the adjacent apical inferior wall. Activity in the other thomas appears normal and is unchanged from the post stress images. The stress images were obtained using a gated SPECT technique, which permits visualization of wall motion and calculation of the left ventricular ejection fraction. No left ventricular wall motion abnormalities are present. The calculated left ventricular ejection fraction is 76% on the stress study. No previous studies available for comparison. IMPRESSION: A small fixed perfusion abnormality is present at the apex. This appears slightly more severe on the rest images done one day subsequent to the stress images. No regions of reversible ischemia are visualized. Left ventricular wall motion and ejection fraction are normal.
[2016-07-13 16:20] VITALS: BP 103/53
--- NOTE | 2016-07-15 13:52 | Discharge Summary ---
Visit Information Visit Dates Admission Date: 07/09/16 Discharge Date: 07/13/16 Hospital Course Course Attending Physician: KENDALL LOZANO MD Primary Care Physician: LUIS ZAMORANO,[facility] Course: This is a 61 y/o F with a PMH of dyslipidemia, right ankle injury s/p fusion on 2015, who presents to the ED with complaints of headache and pain radiating down both arms since this AM. According to the patient, she started to have a headache this morning, similar to the ones she has been having over the last 3 months. Associated with blurring of vision, no loss of vision, no associated nausea or vomiting. It was initially present all over the head and then localized to the right side. She reports that this headache is similar to the one she has been having. She also started to have pain in the right arm, majorly in the hand, radiating to the neck. This was associated with some shortness of breath. She also started to have pain in her left arm, which is new. Patient reports another similar episode of pain in the right arm, one year ago, which resolved by itself. She also reports having severe chest pain for several days, 2 years ago. She never saw a physician for it. When she later went to see her PCP, she was asked to go see a yardage control operator, which she never did. Plan - Generalized joint pain and redness of the sclera along with right sided temporal pain - Patient had elevated ESR and C-reactive protein at 58 and 4.6 respectively on slightly increased from the previous values. Her ANGELIC was negative, she was evaluated by rheumatology yesterday. It is unlikely that she has temporal arteritis. She is advised to use NSAIDs for her joint pains. Rheumatology recommended rheumatoid factor and anti-CCP which is pending. Patient has physiological pericardial effusion on echo which could be normal or due to inflammatory changes in pericardium. Rule out coronary artery disease Patient was initially admitted for unstable angina, her troponins have been negative. She had some flattening of T waves in the EKG which is stable now. Patient had a negative stress test for any ischemia and plan is that she would likely be discharged to home to follow-up with Dr. Enriquez in the office. Patient was on nitroglycerin patch and sublingual nitroglycerin in hospital. Continued aspirin and statin on discharge. Community Acquired PNA Patient was treated for community-acquired pneumonia with ceftriaxone and azithromycin, her respiratory status looked stable she was switched to by mouth Keflex upon discharge to complete a total 7 day course. Her urine Legionella, influenza and strep pneumo were negative Allergies: Coded Allergies: aspirin (SENSITIVE 07/08/16) Disposition Summary Disposition Principal Diagnosis: unstable angina Additional Diagnosis: myalgias, PNA Discharge Disposition: home or self care Discharge Instructions General Discharge Information Code Status: Full Code Patient's Diet: heart healthy regular Patient's Activity: as tolerated Follow-Up Instructions/Appts: Please follow up with PCP upon discharge. Please follow up with Vice President Of Manufacturing upon discharge. Medications at Discharge Discharge Medications: Start taking the following new medications: Aspirin (Aspirin*) 81 MG TAB.CHEW 81 Milligram ORAL DAILY Days = 60 No Refills Comments: Last Taken: 07/13/16 Time: 9 am Atorvastatin Calcium (Atorvastatin Calcium) 40 MG TABLET 40 Milligram ORAL 5 PM Days = 30 No Refills Comments: Last Taken: 07/12/16 Time: 4:30 am Cephalexin (Cephalexin) 250 MG CAPSULE 250 Milligram ORAL Q6H Qty = 11 No Refills Comments: Last Taken: 07/13/16 Time: 11 am Ibuprofen (Ibuprofen) 600 MG TABLET 600 Milligram ORAL EVERY 8 HOURS NEEDED as needed for 5-10 pain scale Days = 30 No Refills Comments: Last Taken: 07/13/16 Time: 11 am Lidocaine (Lidoderm) 5 % ADH..PATCH 1 Patch On the skin DAILY Qty = 10 No Refills Instructions: may wear up to 12 hours Comments: Last Taken: 07/13/16 Time: 12 pm Copies To: KENDALL LOZANO MD; JOCE ZAMORANO,TRU De Los Santos; JOCELYNN ZAMORANO,JACKLYN SMITH MD, CLAUDIA
== END 2016-07-13 17:45 | DRG 195 ==
LOC: ENRESERV → ENRESERVDT → ENRESERVTM → ERH 21:23 → 1NO 07-09 00:09 → ERHI 07-09 00:09 → EDBEDREQ 07-09 02:16 → 1NO 07-09 02:23 → ERHI 07-09 02:30 → 1NO 07-09 03:46
PROVIDERS: Emergency Medicine; Internal Medicine; ADMIT Internal Medicine
DX: J18.9 Pneumonia, unspecified organism (principal); E78.5 Hyperlipidemia, unspecified; H10.9 Unspecified conjunctivitis; R07.9 Chest pain, unspecified; E66.9 Obesity, unspecified; M47.892 Other spondylosis, cervical region; M79.1 Myalgia; M25.512 Pain in left shoulder; M54.2 Cervicalgia
CPT/HCPCS: 1NP; 72141; 36415; 73030-LT; 73030-RT; 78452; 81001; 82436; 86431; 87040; 87070; 87449; 87450; 87804; 87804-59; 93005; 93010; 93016; 93017; 93306; 97116-GO; 97162-GP; 97530-GO; A9502; J0456; J0696; J1245; J1650; J3490; J7060